=== PATIENT | male | born 1970 ===

== ENCOUNTER 2017-12-20 09:45 | Inpatient (IN) | payer SELFPAY ==
[2017-12-20 09:49] VITALS: BMI 27.1
--- NOTE | 2017-12-20 09:54 | ED PDOC ---
Arrival/HPI - General Chief Complaint: Cardiac Arrest Time Seen by Provider: 12/20/17 09:48 Historian: EMS EM Caveat: Acuity of Condition - History of Present Illness Narrative History of Present Illness (Text): 12/20/17 09:53 Patient is a 47 year old male who was brought into the emergency department by EMS for cardiac arrest. Per EMS patient has a medical history of hypertension, diabetes, and kidney failure(on dialysis). EMS states that patient was found in cardiac arrest and asystolic but not witnessed. Family stated he was down for 15 minutes, and they performed CPR until EMS arrived. EMS worked on him for 20 minutes. They administered 3 epinephrines and he subsequently went into V-tach. ST elevation was noted in the field. He was defibrillated and heart rate was in the 60's, and now in the 70's-80's. His glucose was found to be 260. He was administered Amiodarone 300mg and IV fluids 500mL x3. Patient was intubated and and EMS states his lungs were initially clear and are clear now. His last dialysis was 4 days ago. Time/Duration: Prior to Arrival Context: Home Past Medical History - Provider Review Nursing Documentation Reviewed: Yes Family/Social History - Physician Review Nursing Documentation Reviewed: Yes Family/Social History: Unknown Family HX Allergies/Home Meds Allergies/Adverse Reactions: Allergies No Known Allergies Allergy (Verified 12/20/17 09:57) Review of Systems - Review of Systems Systems not reviewed;Unavailable: Acuity of Condition Physical Exam - Physical Exam Physical Exam Limitations: Clinical Condition Vital Signs Reviewed: Yes Temperature: Afebrile Blood Pressure: Normal Pulse: Tachycardic Respiratory Rate: Mechanically Ventilated Appearance: Positive for: Ill-Appearing Pain Distress: None Mental Status: Positive for: Comatose - Systems Exam Head: Present: Atraumatic Pupils: Present: Other (pupils 1mm and bilaterally reactive.) Conjunctiva: Present: Normal Mouth: Present: Moist Mucous Membranes Nose (External): Present: Atraumatic Neck: No: MIDLINE TENDERNESS Respiratory/Chest: Present: Clear to Auscultation, Rhonchi (bilaterally), Other (ET tube in place, 7.5 tube with good airflow.). No: Respiratory Distress, Accessory Muscle Use Cardiovascular: Present: Regular Rate and Rhythm. No: Murmurs Abdomen: No: Tenderness, Distention, Peritoneal Signs Back: Present: Normal Inspection Upper Extremity: Present: Normal Inspection. No: Cyanosis, Edema Lower Extremity: Present: Normal Inspection. No: Edema Neurological: Present: CN II-XII Intact, Other (Not moving extremities, not responsive to painful stimuli) Skin: Present: Warm, Dry, Normal Color, Other (Lower extremity foot wounds). No: Rashes Psychiatric: Present: Lethargic Medical Decision Making ED Course and Treatment: 12/20/17 09:50 Impression: Patient brought in by EMS for cardiac arrest. Differential Diagnosis included but are not limited to: S/p cardiac arrest, Cardiac vs. Sepsis vs. fluid overload/respiratory distress. Plan: -- BG -- Head CT without contrast -- EKG -- Labs -- Cardiac enzymes -- Chest X-ray -- BLood and urineculture -- Urinalysis -- Reassess and disposition Prior Visits: Notes and results from previous visits were reviewed. Progress Notes: 12/20/17 09:[address] elevations in leads 2, 3, and aVF. Interpreted by me. 12/20/17 09:[address] Wilson, who stated not to call code heart at this time and he will come to see the patient immediately. Will make further recommendations. 12/20/17 9:57 Discussed case with surgical aide. who will come to place a central line. 12/20/17 10:13 CPR performed because patient lost his pulse. Given one round of epi and regained his pulse, normal rhythm and rate. Good femoral pulse on left as examined by me. Started on Levophed IV drip. 12/20/17 10:20 Dr. Wilson came to see patient. He recommended ASA DE and Heparin IV pending Will start patient on Heparin and Aspirin pending CT completion and read. 12/20/17 10:22 Discussed case with , who is aware of and accepted patient to his ICU service. 12/20/17 10:33 Code sepsis called. 12/20/17 10:37 Chest X-ray: FINDINGS: LUNGS: There is bilateral pulmonary edema. The endotracheal tube is at the level of the aquiles PLEURA: No significant pleural effusion identified, no pneumothorax apparent. CARDIOVASCULAR: Normal. OSSEOUS STRUCTURES: No significant abnormalities. VISUALIZED UPPER ABDOMEN: Normal. OTHER FINDINGS: None. IMPRESSION: There is bilateral pulmonary edema. The endotracheal tube is at the level of the aquiles. 12/20/17 10:44 Discussed case with , who is aware of and accepts patient under his service. 12/20/17 12:[address] results called to me by Dr. Jang. RN Sofiya aware and will not give Aspirin nor Heparin. Patient's orders for Aspirin and Heparin were cancelled by me via Pharmacy. 12/20/17 13:00 Procedure: Head CT without contrast Impression: Intraventricular hemorrhage with blood filling the 4th ventricle. 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 Dictator: Godfrey Potter 12/20/17 13:22 Dr. Escobedo, ICU Attending discussed case with Neurosurgery. - Critical Care Critical Care Minutes: 60 minutes - Lab Interpretations I have reviewed the lab results: Yes - RAD Interpretation Lead Burner Helper: Radiologist - EKG Interpretation Interpreted by ED Physician: Yes Type: 12 lead EKG - Scribe Statement The provider has reviewed the documentation as recorded by the Scribe Nino So Provider Scribe Attestation: All medical record entries made by the Scribe were at my direction and personally dictated by me. I have reviewed the chart and agree that the record accurately reflects my personal performance of the history, physical exam, medical decision making, and the department course for this patient. I have also personally directed, reviewed, and agree with the discharge instructions and disposition. Disposition/Present on Arrival - Present on Arrival Any Indicators Present on Arrival: No - Disposition Have Diagnosis and Disposition been Completed?: Yes Diagnosis: Intracranial bleed, STEMI (ST elevation myocardial infarction), Sepsis, Cardiac arrest Disposition: HOSPITALIZED Disposition Time: 10:30 Patient Plan: Admission Condition: CRITICAL
[2017-12-20 10:19] LABS: BASO # 0.07 K/mm3 (0.0-2.0); BASO % 0.5 % (0.0-3.0); EOS # 0.1 (0.0-0.7); EOS % 0.4 % (1.5-5.0); GRAN # 10.43 (1.4-6.5); GRAN % 72.7 % (50.0-68.0); HEMOGLOBIN 10.7 g/dL (14.0-18.0); LYMPH # 3.5 (1.2-3.4); LYMPH % 24.2 % (22.0-35.0); MEAN CORPUSCULAR HEMOGLOBIN 28.7 pg (25.0-35.0); MEAN CORPUSCULAR HGB CONC 30.8 g/dl (31.0-37.0); MEAN PLATELET VOLUME 10.1 fl (7.0-11.0); MONO # 0.3 (0.1-0.6); MONO % 2.2 % (1.0-6.0); RBC 3.73 10^6/uL (3.5-6.1); RED CELL DISTRIBUTION WIDTH 15.9 % (11.5-14.5); WHITE BLOOD COUNT 14.4 10^3/ul (4.5-11.0)
[2017-12-20 10:21] LABS: VENOUS BLOOD GAS BASE EXCESS -23.2 mmol/L (0.0-2.0); VENOUS BLOOD GAS PO2 90 mm/Hg (30-55)
[2017-12-20 10:23] LABS: VENOUS BLOOD PH 6.82 (7.32-7.43)
[2017-12-20] MEDS ORDERED: Piperacill/Tazo 4.5gm in NS 4.5 GM/100 ML BAG IVPB STA (10:24)
[2017-12-20] MEDS ORDERED: Vancomycin 1gm in NS 250ml 1 GM/250 ML BAG IVPB STA ×2 (10:25→10:36)
[2017-12-20] MEDS ORDERED: Sodium Chloride 0.9% 1,000 ML IV STA ×2 (10:26)
[2017-12-20] MEDS ORDERED: Sodium Chloride 0.9% 500 ML IV STA (10:26)
[2017-12-20] MEDS: NOREPINEPHRINE BIT/0.9 % NACL 4 MG/250 ML BAG IV PRN ×2 (10:33→13:00)
[2017-12-20 10:37] LABS: INR 1.49; PARTIAL THROMBOPLASTIN TIME 40.6 Seconds (25.1-36.5); PROTHROMBIN TIME 17.3 SECONDS (9.4-12.5)
--- NOTE | 2017-12-20 10:39 | RAD ---
Date of service: 12/20/2017 HISTORY: cardiac arrest intubate COMPARISON: No prior. FINDINGS: LUNGS: There is bilateral pulmonary edema. The endotracheal tube is at the level of the aquiles PLEURA: No significant pleural effusion identified, no pneumothorax apparent. CARDIOVASCULAR: Normal. OSSEOUS STRUCTURES: No significant abnormalities. VISUALIZED UPPER ABDOMEN: Normal. OTHER FINDINGS: None. IMPRESSION: There is bilateral pulmonary edema. The endotracheal tube is at the level of the aquiles
[2017-12-20 10:40] LABS: TROPONIN I 0.1 ng/mL
[2017-12-20 10:45] LABS: ARTERIAL BLOOD GAS HCO3 10.1 mmol/L (21-28); ARTERIAL BLOOD GAS HEMOGLOBIN 9.6 g/dL (11.7-17.4); ARTERIAL BLOOD GAS O2 CAPACITY 13.3 mL/dl (16-24); ARTERIAL BLOOD GAS O2 CONTENT 12.1 ML/dl (15-23); ARTERIAL BLOOD GAS O2 SAT 90.9 % (95-98); ARTERIAL BLOOD GAS PCO2 47 mm/Hg (35-45); ARTERIAL BLOOD GAS TCO2 11.5 mmol.L (22-28)
[2017-12-20 10:46] LABS: ARTERIAL BLOOD GAS PH 6.94 (7.35-7.45)
[2017-12-20 10:53] LABS: ALBUMIN 3.2 g/dL (3.0-4.8); CALCIUM 8.4 mg/dL (8.4-10.5)
--- NOTE | 2017-12-20 11:14 | CP.PCM.PN ---
Addendum entered and electronically signed by Michaela Shipman DO 12/20/17 11:35: 11:00 am: Head CT pending to be performed. Levophed requirements increased. ICU attending at bedside. ICU attending will place central line for increasing pressor requirements prior to head CT. Original Note: Subjective - Date & Time of Evaluation Date of Evaluation: 12/20/17 Time of Evaluation: 10:15 - Subjective Subjective: Patient s/p cardiac arrest, surgical team called to place central line for access. Patient hemodynamically stable at time of exam. Patient for head CT prior to administering ASA for cardiac arrest. Patient became bradycardiac and lost pulse during initial exam for line placement, ROSC achieved after 1 round of ACLS. Levophed started through peripheral IV in right arm per ER team. BP 124 systolic. ER team preferred head CT prior to central line placement. Will re- evaluate post head CT for central line placement. Objective - Vital Signs/Intake and Output Vital Signs (last 24 hours): Temp Pulse Resp BP Pulse Ox 98.4 F 85 30 H 91/3 L 93 L 12/20/17 09:47 12/20/17 11:03 12/20/17 11:03 12/20/17 11:03 12/20/17 11:03 - Medications Medications: Current Medications NOREPINEPHRINE BIT/0.9 % NACL (Levophed 4 Mg/ 250 Ml Ns Premixed) 4 mg in 250 mls @ 15 mls/hr IV .[id number] PRN; Protocol PRN Reason: TITRATE PER MD ORDER Last Admin: 12/20/17 10:33 Dose: 15 mls/hr Sodium Chloride (Sodium Chloride 0.9%) 1,000 mls @ 999 mls/hr IV .Q1H1M STA Stop: 12/20/17 11:26 Last Admin: 12/20/17 10:54 Dose: 999 mls/hr Sodium Chloride (Sodium Chloride 0.9%) 1,000 mls @ 999 mls/hr IV .Q1H1M STA Stop: 12/20/17 11:26 Vancomycin HCl (Vancomycin 1gm) 1 gm in 250 mls @ 167 mls/hr IVPB STAT STA; Protocol Stop: 12/20/17 11:54 - Labs Labs: 12/20/17 10:00 12/20/17 10:00 PT 17.3 SECONDS (9.4-12.5) H 12/20/17 10:00 INR 1.49 12/20/17 10:00 APTT 40.6 Seconds (25.1-36.5) H 12/20/17 10:00
[2017-12-20 11:35] LABS: BASO # 0.03 K/mm3 (0.0-2.0); BASO % 0.1 % (0.0-3.0); EOS # 0.1 (0.0-0.7); EOS % 0.3 % (1.5-5.0); GRAN # 20.21 (1.4-6.5); GRAN % 87.2 % (50.0-68.0); HEMOGLOBIN 10.2 g/dL (14.0-18.0); LYMPH # 2.1 (1.2-3.4); LYMPH % 9.1 % (22.0-35.0); MEAN CELL VOLUME 91.7 fl (80.0-105.0); MEAN CORPUSCULAR HEMOGLOBIN 28.3 pg (25.0-35.0); MEAN CORPUSCULAR HGB CONC 30.8 g/dl (31.0-37.0); MEAN PLATELET VOLUME 9.9 fl (7.0-11.0); MONO # 0.8 (0.1-0.6); MONO % 3.3 % (1.0-6.0); RBC 3.61 10^6/uL (3.5-6.1); RED CELL DISTRIBUTION WIDTH 15.9 % (11.5-14.5); WHITE BLOOD COUNT 23.2 10^3/ul (4.5-11.0)
[2017-12-20 11:36] LABS: VENOUS BLOOD GAS BASE EXCESS -19.9 mmol/L (0.0-2.0); VENOUS BLOOD GAS PO2 224 mm/Hg (30-55)
[2017-12-20 11:39] LABS: VENOUS BLOOD PH 7.05 (7.32-7.43)
[2017-12-20] MEDS ORDERED: Sodium Bicarbonate 8.4% 150 MEQ in Dextrose 5% In Water 1,000 ML IV SCH (11:45)
[2017-12-20] MEDS ORDERED: Vasopressin 20 UNITS in Dextrose 5% In Water 100 ML IV SCH (11:45)
[2017-12-20] MEDS ORDERED: Amiodarone 360 mg/D5W 200 ml 360 MG/200 ML BAG IV SCH (12:00)
--- NOTE | 2017-12-20 12:00 | CP.PCM.HP ---
<Jerica Lilly - Last Filed: 12/20/17 15:09> History of Present Illness - History of Present Illness History of Present Illness: PGY-1 Jerica Lilly D.O. H&P for Dr. Angulo's service: Dave Donaldson is a 47 yo male with a history of ESRD (HD MWF), CVA, T2DM, TN, and HTN who presented to the ED after being found unresponsive for an unknown amount of time in his room by his mother and brother. They began CPR for 15 minutes until EMS arrived. EMS continued ACLS for another 20 minutes and intubated the patient. Patient's family reports that patient lives at home with family. He is bedbound and requires assistance with all ADLs. 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 Patient has been at his mental and physical baseline up until this event. However, patient missed dialysis on Saturday due to vomiting prior to transport. Patient's POA is his son, Nic. Patient does not have advance directives or living will. He never discussed code status with his family. Patient's family requested a palliative consult. SENIOR ANALYST DEVELOPER Chanelle Guerrero, spoke with family, who decided to make the patient DNR. 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 Currie [place]: [place] Patient receives most of his care at [facility] [place] Present on Admission - Present on Admission Any Indicators Present on Admission: Yes History of DVT/PE: No History of Uncontrolled Diabetes: Yes Urinary Catheter: No Decubitus Ulcer Present: No History Surgical Site Infection Following: None Review of Systems - Review of Systems Systems not reviewed;Unavailable: Intubated Past Patient History - Infectious Disease Hx of Infectious Diseases: None - Tetanus Immunizations Tetanus Immunization: Unknown - Past Medical History & Family History Past Medical History?: Yes Past Family History: Reviewed and not pertinent - Past Social History Smoking Status: Never Smoked Chewing Tobacco Use: No Cigar Use: No Occupation: former nurse Alcohol: None Drugs: Denies Home Situation {Lives}: With Family - CARDIAC Hx Heart Attack: Yes Hx Hypertension: Yes - RENAL Hx Dialysis: Yes (MWF) Type of Dialysis Access: R chest udall Date of Last Dialysis Treatment: 12/16/17 - ENDOCRINE/METABOLIC Hx Diabetes Mellitus Type 1: Yes - PSYCHIATRIC Hx Substance Use: No - SURGICAL HISTORY Other/Comment: toe amputation - ANESTHESIA Hx Anesthesia: Yes Hx Anesthesia Reactions: No Hx Malignant Hyperthermia: No Meds Allergies/Adverse Reactions: Allergies Allergy/AdvReac Type Severity Reaction Status Date / Time No Known Allergies Allergy Verified 12/20/17 09:57 Physical Exam - Head Exam Head Exam: ATRAUMATIC, NORMAL INSPECTION - Eye Exam Eye Exam: PERRL - ENT Exam ENT Exam: Mucous Membranes Moist Additional comments: ET tube NGT - Neck Exam Neck exam: Positive for: Normal Inspection - Respiratory Exam Respiratory Exam: Clear to Auscultation Bilateral Additional comments: intubated on ventilator - Cardiovascular Exam Cardiovascular Exam: REGULAR RHYTHM, +S1, +S2 - Extremities Exam Additional comments: bandages on feet b/l (amputations) - Back Exam Back exam: NORMAL INSPECTION - Neurological Exam Additional comments: unresponsive - Skin Skin Exam: Dry, Intact, Normal Color, Warm Results - Vital Signs Recent Vital Signs: Last Vital Signs Temp 98.4 F 12/20/17 09:47 Pulse 83 12/20/17 11:46 Resp 30 H 12/20/17 11:46 BP 128/44 L 12/20/17 11:46 Pulse Ox 95 12/20/17 11:46 - Labs Result Diagrams: 12/20/17 11:25 12/20/17 11:25 Labs: Laboratory Results - last 24 hr 12/20/17 12/20/17 12/20/17 10:00 10:00 10:00 WBC 14.4 H RBC 3.73 Hgb 10.7 L Hct 34.7 L MCV 93.0 MCH 28.7 MCHC 30.8 L RDW 15.9 H Plt Count 315 MPV 10.1 Gran % 72.7 H Lymph % (Auto) 24.2 Guadalupe % (Auto) 2.2 Eos % (Auto) 0.4 L Baso % (Auto) 0.5 Gran # 10.43 H Lymph # (Auto) 3.5 H Guadalupe # (Auto) 0.3 Eos # (Auto) 0.1 Baso # (Auto) 0.07 PT 17.3 H INR 1.49 APTT 40.6 H pCO2 pO2 90 H HCO3 ABG pH ABG Total CO2 ABG O2 Saturation ABG O2 Content ABG Base Excess ABG Hemoglobin ABG Carboxyhemoglobin POC ABG HHb (Measured) ABG Methemoglobin ABG O2 Capacity VBG pH 6.82 L* VBG pCO2 73.0 H* VBG HCO3 11.9 L VBG Total CO2 14.1 L VBG O2 Sat (Calc) 86.0 H VBG Base Excess -23.2 L VBG Potassium 5.4 H Hgb O2 Saturation Sodium 144.0 Chloride 108.0 H Glucose 189 H Lactate 9.0 H* FiO2 21.0 Potassium Carbon Dioxide Anion Gap BUN Creatinine Est GFR ( Amer) Est GFR (Non-Af Amer) Random Glucose Calcium Magnesium Total Bilirubin AST ALT Alkaline Phosphatase Lactate Dehydrogenase Total Creatine Kinase Troponin I NT-Pro-B Natriuret Pep Total Protein Albumin Globulin Albumin/Globulin Ratio Venous Blood Potassium 5.4 H Blood Type Antibody Screen BBK History Checked 12/20/17 12/20/17 12/20/17 10:00 10:00 10:30 WBC RBC Hgb Hct MCV MCH MCHC RDW Plt Count MPV Gran % Lymph % (Auto) Guadalupe % (Auto) Eos % (Auto) Baso % (Auto) Gran # Lymph # (Auto) Guadalupe # (Auto) Eos # (Auto) Baso # (Auto) PT INR APTT pCO2 47 H pO2 86.0 HCO3 10.1 L ABG pH 6.94 L* ABG Total CO2 11.5 L ABG O2 Saturation 90.9 L ABG O2 Content 12.1 L ABG Base Excess -21.3 L ABG Hemoglobin 9.6 L ABG Carboxyhemoglobin 1.7 H POC ABG HHb (Measured) 8.9 H ABG Methemoglobin 0.5 ABG O2 Capacity 13.3 L VBG pH VBG pCO2 VBG HCO3 VBG Total CO2 VBG O2 Sat (Calc) VBG Base Excess VBG Potassium Hgb O2 Saturation 89.0 L Sodium 146 Chloride 110 H Glucose Lactate FiO2 100.0 Potassium 5.2 H Carbon Dioxide 11 L Anion Gap 30 H BUN 93 H Creatinine 11.6 H* Est GFR ( Amer) 6 Est GFR (Non-Af Amer) 5 Random Glucose 183 H Calcium 8.4 Magnesium 3.0 H Total Bilirubin 0.5 AST 62 H ALT 52 Alkaline Phosphatase 152 H Lactate Dehydrogenase 585 Total Creatine Kinase 82 Troponin I 0.10 NT-Pro-B Natriuret Pep 14831 H Total Protein 6.5 Albumin 3.2 Globulin 3.3 Albumin/Globulin Ratio 1.0 L Venous Blood Potassium Blood Type O POSITIVE Antibody Screen Negative BBK History Checked No verified bt 12/20/17 12/20/17 11:25 11:25 WBC 23.2 H D RBC 3.61 Hgb 10.2 L Hct 33.1 L MCV 91.7 MCH 28.3 MCHC 30.8 L RDW 15.9 H Plt Count 315 MPV 9.9 Gran % 87.2 H Lymph % (Auto) 9.1 L Guadalupe % (Auto) 3.3 Eos % (Auto) 0.3 L Baso % (Auto) 0.1 Gran # 20.21 H Lymph # (Auto) 2.1 Guadalupe # (Auto) 0.8 H Eos # (Auto) 0.1 Baso # (Auto) 0.03 PT INR APTT pCO2 pO2 224 H HCO3 ABG pH ABG Total CO2 ABG O2 Saturation ABG O2 Content ABG Base Excess ABG Hemoglobin ABG Carboxyhemoglobin POC ABG HHb (Measured) ABG Methemoglobin ABG O2 Capacity VBG pH 7.05 L* VBG pCO2 35.0 L VBG HCO3 9.7 L VBG Total CO2 10.8 L VBG O2 Sat (Calc) 98.3 H VBG Base Excess -19.9 L VBG Potassium 6.1 H Hgb O2 Saturation Sodium 142.0 Chloride 111.0 H Glucose 188 H Lactate 8.1 H* FiO2 21.0 Potassium Carbon Dioxide Anion Gap BUN Creatinine Est GFR ( Amer) Est GFR (Non-Af Amer) Random Glucose Calcium Magnesium Total Bilirubin AST ALT Alkaline Phosphatase Lactate Dehydrogenase Total Creatine Kinase Troponin I NT-Pro-B Natriuret Pep Total Protein Albumin Globulin Albumin/Globulin Ratio Venous Blood Potassium 6.1 H Blood Type Antibody Screen BBK History Checked - EKG Data EKG Interpreted by: ER Physician EKG shows normal: Sinus rhythm, ST-T waves Rate: Normal - EKG Data When Compared to Previous EKG: Significant Changes Interpretation: Acute Ischemia EKG comments: QTc 572 Assessment & Plan - Assessment and Plan (Free Text) Assessment: Patient is a 47 yo male with an extensive PMH including ESRD on HD, MIs, CVA, and T2DM who presented to the ED after being found unresponsive in asystole. He was down for >35 minutes before achieving ROSC. He is intubated and unresponsive to stimuli. CT head shows intracranial hemorrhage. Plan: Cardiac arrest- h/o [place] x2, CVA in 2005 - Intubated on ventilator - EKG: NSR (67), ST elevation, QTc 572 - CT chest/abd/pelvis: b/l alveolar infiltrates and pleural effusions - CXR: b/l pulm edema, ET tube in place - ABG on FiO2 100: pH 6.94, pO2 85, pCO2 47 - Trop 0.10 - BNP 34,700 - Echo pending - Amiodarone drip - Nicardipine drip - Sodum bicarb drip - ICU consulted (Gregg) - Cardiology consulted (Steve) Intraventricular hemorrhage - CT head: intraventricular hemorrhage with blood filling 4th ventricle, mod- severe hydrocephalus with enlargement of temporal horns - Keppra 500 mg IV BID - Soul-cortef 50 mg IV Q6H - Neurology consulted (Jung) Sepsis - Leukocytosis 14.4->23.2 - LA 9->8.1->6.3 - f/u Cx - ID consulted (Edy) ESRD- HD ([facility]), patient missed this past Wed HD - Continue dialysis schedule as tolerated - Nephrology consulted (Nella) HTN- currently requiring pressors - Levophed - Vasopressin T2DM- b/l foot amputations, b/l vision loss - BG 180s - Monitor glucose GI ppx: not indicated VTE ppx: contraindicated 2/2 brain bleed Code status: DNR- paliiative consulted Case discussed with Dr. Angulo. <Koby Angulo - Last Filed: 12/21/17 15:05> Results - Vital Signs Recent Vital Signs: Last Vital Signs Temp 97.0 F L 12/20/17 16:15 Pulse 104 H 12/20/17 18:46 Resp 24 12/20/17 18:46 BP 149/74 12/20/17 16:15 Pulse Ox 98 12/20/17 16:15 - Labs Result Diagrams: 12/20/17 11:25 12/20/17 11:25 Labs: Laboratory Results - last 24 hr 10/05/18 10/05/18 11:25 14:50 pO2 133 H VBG pH 7.10 L* VBG pCO2 33.0 L VBG HCO3 10.2 L VBG Total CO2 11.2 L VBG O2 Sat (Calc) 97.8 H VBG Base Excess -18.4 L VBG Potassium 6.2 H* Sodium 140.0 Chloride 106.0 Glucose 319 H Lactate 6.3 H* FiO2 21.0 Procalcitonin 0.25 Venous Blood Potassium 6.2 H* Attending/Attestation - Attestation I have personally seen and examined this patient.: Yes I have fully participated in the care of the patient.: Yes I have reviewed all pertinent clinical information: Yes Notes (Text): 12/21/17 14:59 attending note; Patient seen and examined with resident in the ER. Patient's family by the bedside. Patient's son and sister by the bedside. palliative care consult by the bedside. Therapeutic Strategy Lead in the bed side. Patient is a 47 year old male with a history of ESRD (HD MWF), CVA, T2DM, TN, and HTN, toe amputations on both feet is admitted after being found unresponsive for an unknown amount of time in his room by his mother and brother.They began CPR for 15 minutes until EMS arrived. EMS continued ACLS for another 20 minutes and intubated the patient. Patient's family reports that patient lives at home with family. He is bedbound and requires assistance with all ADLs. Patient is blind and has amputations in both feet. Currently patient is on t vent. Nonresponsive. central line placed by attending. Started on pressors. CT head ordered. CT abdomen and pelvis ordered. End-stage renal disease on dialysis; nephrology evaluation requested. We will stabilize the patient before hemodialysis. EKG showed ST elevations. Reviewed by planting machine crewman. Patient is not a candidate for cardiac cath at this point. We will stabilize the patient. Patient will be transferred to ICU. family explained in detail about poor prognosis.
--- NOTE | 2017-12-20 12:08 | RAD ---
Date of service: 12/20/2017 HISTORY: post tlc insertion COMPARISON: Earlier study same day FINDINGS: LUNGS: There is pulmonary edema showing slight improvement. Endotracheal tube in satisfactory position. Left subclavian central line in the SVC with no pneumothorax PLEURA: No significant pleural effusion identified, no pneumothorax apparent. CARDIOVASCULAR: Normal. OSSEOUS STRUCTURES: No significant abnormalities. VISUALIZED UPPER ABDOMEN: Normal. OTHER FINDINGS: None. IMPRESSION: There is pulmonary edema showing slight improvement. Endotracheal tube in satisfactory position. Left subclavian central line in the SVC with no pneumothorax
[2017-12-20 12:09] LABS: ALBUMIN 3.1 g/dL (3.0-4.8); CALCIUM 8.1 mg/dL (8.4-10.5)
[2017-12-20] MEDS ORDERED: levETIRAcetam 500mg IVPB 500 MG/100 ML BAG IV SCH (12:15)
[2017-12-20] MEDS ORDERED: Heparin25000 units/250ml 1/2NS 25,000 UNITS/250 ML BAG IV SCH (12:45)
--- NOTE | 2017-12-20 12:46 | CT ---
Date of service: 12/20/2017 PROCEDURE: CT HEAD WITHOUT CONTRAST. HISTORY: cardiac arrest COMPARISON: None available. TECHNIQUE: Axial computed tomography images were obtained through the head/brain without intravenous contrast. Radiation dose: Total exam DLP = 2307 mGy-cm. This CT exam was performed using one or more of the following dose reduction techniques: Automated exposure control, adjustment of the mA and/or kV according to patient size, and/or use of iterative reconstruction technique. FINDINGS: HEMORRHAGE: There is a large amount of blood filling the 4th ventricle. There is also small amount of blood in the 3rd ventricle and a focal area of hemorrhage in the medial aspect of the right thalamus. BRAIN: Chronic microvascular changes are seen in the periventricular white matter. VENTRICLES: There is hydrocephalus with enlargement of the temporal horns CALVARIUM: Unremarkable. PARANASAL SINUSES: Unremarkable as visualized. No significant inflammatory changes. MASTOID AIR CELLS: Unremarkable as visualized. No inflammatory changes. OTHER FINDINGS: Findings were discussed with Dr. Moss at 12:35 p.m. IMPRESSION: Intraventricular hemorrhage with blood filling the 4th ventricle. 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
--- NOTE | 2017-12-20 12:51 | CT ---
Date of service: 12/20/2017 PROCEDURE: CT Chest, Abdomen and Pelvis with intravenous contrast HISTORY: non shockable cardiac arrest, septic shock COMPARISON: None available. TECHNIQUE: IV dose administered: 146 cc of Omni 350 Radiation dose: Total exam DLP = 935 mGy-cm. This CT exam was performed using one or more of the following dose reduction techniques: Automated exposure control, adjustment of the mA and/or kV according to patient size, and/or use of iterative reconstruction technique. FINDINGS: CT CHEST WITH CONTRAST: LUNGS: Bilateral alveolar infiltrates and moderate size pleural effusions MEDIASTINUM: Unremarkable. Normal caliber aorta and pulmonary arterial trunk. No aortic dissection. Normal size heart. LYMPH NODES: Unremarkable. PLEURA: Moderate size pleural effusion BONES: Unremarkable. OTHER FINDINGS: Nasogastric tube in satisfactory position CT ABDOMEN AND PELVIS: LIVER: Unremarkable. No gross lesion or ductal dilatation. GALLBLADDER AND BILE DUCTS: Unremarkable. PANCREAS: Unremarkable. No gross lesion or ductal dilatation. SPLEEN: Unremarkable. ADRENALS: Unremarkable. No mass. KIDNEYS AND URETERS: Unremarkable. No hydronephrosis. No solid mass. VASCULATURE: Unremarkable. No aortic aneurysm. BOWEL: Unremarkable. No obstruction. No gross mural thickening. APPENDIX: Normal appendix. PERITONEUM: Unremarkable. No free fluid. No free air. LYMPH NODES: Unremarkable. No enlarged lymph nodes. BLADDER: Unremarkable. REPRODUCTIVE: Unremarkable. BONES: No acute fracture. OTHER FINDINGS: None. IMPRESSION: Bilateral alveolar infiltrates and pleural effusions. No intra-abdominal findings
--- NOTE | 2017-12-20 13:44 | CP.PCM.CON ---
History of Present Illness - History of Present Illness History of Present Illness: Palliative consult requested by Dr Carrol Angulo Reason: Goals of care 47 year old male with history ESRD on HD, DM, HTN who was found unresponsive by family who started CPR for 15 minutes> EMS> > ACLS X 20 minutes> ROSC. 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 CT of chest/ab /pelvis: Bilateral infiltrates and pleural effusions PMHx: HTN,DM, PVD, ESRD on HD,CVA left sided weakness, AR X2,bed bound, blind. PSH: R upper chest [place], bilateral toe amputations Social History: Non smoker, no alcohol or drug use. Former nurse,lives with family. Family History: Non contributory Advance Care Planning: The patient did not have an Advanced Directive> POA is his son Nic Review of Systems: Unable to obtain, intubated/unresponsive Past Patient History - Infectious Disease Hx of Infectious Diseases: None - Past Social History Smoking Status: Never Smoked - CARDIAC Hx Heart Attack: Yes Hx Hypertension: Yes - RENAL Hx Dialysis: Yes (MWF) Type of Dialysis Access: R chest udall Date of Last Dialysis Treatment: 12/16/17 - ENDOCRINE/METABOLIC Hx Diabetes Mellitus Type 1: Yes - PSYCHIATRIC Hx Substance Use: No - SURGICAL HISTORY Other/Comment: toe amputation - ANESTHESIA Hx Anesthesia: Yes Hx Anesthesia Reactions: No Hx Malignant Hyperthermia: No Meds Allergies/Adverse Reactions: Allergies Allergy/AdvReac Type Severity Reaction Status Date / Time No Known Allergies Allergy Verified 12/20/17 09:57 - Medications Medications: Current Medications NOREPINEPHRINE BIT/0.9 % NACL (Levophed 4 Mg/ 250 Ml Ns Premixed) 4 mg in 250 mls @ 15 mls/hr IV .[id number] PRN; Protocol PRN Reason: TITRATE PER MD ORDER Last Admin: 12/20/17 13:00 Dose: 9.86 mcg/min, 37 mls/hr Sodium Bicarbonate 150 meq/ (Dextrose) 1,150 mls @ 200 mls/hr IV .[id number] [facility] Last Admin: 12/20/17 12:57 Dose: 200 mls/hr Physical Exam - Constitutional Appears: Chronically Ill - Head Exam Head Exam: NORMOCEPHALIC - ENT Exam ENT Exam: Mucous Membranes Moist - Neck Exam Neck exam: Positive for: Normal Inspection - Respiratory Exam Respiratory Exam: Decreased Breath Sounds, Rhonchi - Cardiovascular Exam Cardiovascular Exam: +S1, +S2 - GI/Abdominal Exam GI & Abdominal Exam: Normal Bowel Sounds, Soft - Extremities Exam Additional comments: dressing right foot, PVD lower extremities - Neurological Exam Neurological exam: Altered - Skin Skin Exam: Dry, Warm - Additional Findings Additional findings: Palliative performance scale rating Results - Vital Signs Recent Vital Signs: Last Vital Signs Temp 98.2 F 12/20/17 13:03 Pulse 81 12/20/17 13:03 Resp 17 12/20/17 13:03 BP 166/69 H 12/20/17 13:03 Pulse Ox 98 12/20/17 13:03 - Labs Result Diagrams: 12/20/17 11:25 12/20/17 11:25 Labs: Laboratory Results - last 24 hr 12/20/17 12/20/17 12/20/17 10:00 10:00 10:00 WBC 14.4 H RBC 3.73 Hgb 10.7 L Hct 34.7 L MCV 93.0 MCH 28.7 MCHC 30.8 L RDW 15.9 H Plt Count 315 MPV 10.1 Gran % 72.7 H Lymph % (Auto) 24.2 [place] % (Auto) 2.2 Eos % (Auto) 0.4 L Baso % (Auto) 0.5 Gran # 10.43 H Lymph # (Auto) 3.5 H [place] # (Auto) 0.3 Eos # (Auto) 0.1 Baso # (Auto) 0.07 PT 17.3 H INR 1.49 APTT 40.6 H pCO2 pO2 90 H HCO3 ABG pH ABG Total CO2 ABG O2 Saturation ABG O2 Content ABG Base Excess ABG Hemoglobin ABG Carboxyhemoglobin POC ABG HHb (Measured) ABG Methemoglobin ABG O2 Capacity VBG pH 6.82 L* VBG pCO2 73.0 H* VBG HCO3 11.9 L VBG Total CO2 14.1 L VBG O2 Sat (Calc) 86.0 H VBG Base Excess -23.2 L VBG Potassium 5.4 H Hgb O2 Saturation Sodium 144.0 Chloride 108.0 H Glucose 189 H Lactate 9.0 H* FiO2 21.0 Potassium Carbon Dioxide Anion Gap BUN Creatinine Est GFR ( Amer) Est GFR (Non-Af Amer) Random Glucose Calcium Magnesium Total Bilirubin AST ALT Alkaline Phosphatase Lactate Dehydrogenase Total Creatine Kinase Troponin I NT-Pro-B Natriuret Pep Total Protein Albumin Globulin Albumin/Globulin Ratio Venous Blood Potassium 5.4 H Blood Type Antibody Screen BBK History Checked 12/20/17 12/20/17 12/20/17 10:00 10:00 10:30 WBC RBC Hgb Hct MCV MCH MCHC RDW Plt Count MPV Gran % Lymph % (Auto) [place] % (Auto) Eos % (Auto) Baso % (Auto) Gran # Lymph # (Auto) [place] # (Auto) Eos # (Auto) Baso # (Auto) PT INR APTT pCO2 47 H pO2 86.0 HCO3 10.1 L ABG pH 6.94 L* ABG Total CO2 11.5 L ABG O2 Saturation 90.9 L ABG O2 Content 12.1 L ABG Base Excess -21.3 L ABG Hemoglobin 9.6 L ABG Carboxyhemoglobin 1.7 H POC ABG HHb (Measured) 8.9 H ABG Methemoglobin 0.5 ABG O2 Capacity 13.3 L VBG pH VBG pCO2 VBG HCO3 VBG Total CO2 VBG O2 Sat (Calc) VBG Base Excess VBG Potassium Hgb O2 Saturation 89.0 L Sodium 146 Chloride 110 H Glucose Lactate FiO2 100.0 Potassium 5.2 H Carbon Dioxide 11 L Anion Gap 30 H BUN 93 H Creatinine 11.6 H* Est GFR ( Amer) 6 Est GFR (Non-Af Amer) 5 Random Glucose 183 H Calcium 8.4 Magnesium 3.0 H Total Bilirubin 0.5 AST 62 H ALT 52 Alkaline Phosphatase 152 H Lactate Dehydrogenase 585 Total Creatine Kinase 82 Troponin I 0.10 NT-Pro-B Natriuret Pep 71894 H Total Protein 6.5 Albumin 3.2 Globulin 3.3 Albumin/Globulin Ratio 1.0 L Venous Blood Potassium Blood Type O POSITIVE Antibody Screen Negative BBK History Checked No verified bt 12/20/17 12/20/17 12/20/17 11:25 11:25 11:25 WBC 23.2 H D RBC 3.61 Hgb 10.2 L Hct 33.1 L MCV 91.7 MCH 28.3 MCHC 30.8 L RDW 15.9 H Plt Count 315 MPV 9.9 Gran % 87.2 H Lymph % (Auto) 9.1 L [place] % (Auto) 3.3 Eos % (Auto) 0.3 L Baso % (Auto) 0.1 Gran # 20.21 H Lymph # (Auto) 2.1 [place] # (Auto) 0.8 H Eos # (Auto) 0.1 Baso # (Auto) 0.03 PT INR APTT pCO2 pO2 224 H HCO3 ABG pH ABG Total CO2 ABG O2 Saturation ABG O2 Content ABG Base Excess ABG Hemoglobin ABG Carboxyhemoglobin POC ABG HHb (Measured) ABG Methemoglobin ABG O2 Capacity VBG pH 7.05 L* VBG pCO2 35.0 L VBG HCO3 9.7 L VBG Total CO2 10.8 L VBG O2 Sat (Calc) 98.3 H VBG Base Excess -19.9 L VBG Potassium 6.1 H Hgb O2 Saturation Sodium 142.0 146 Chloride 111.0 H 112 H Glucose 188 H Lactate 8.1 H* FiO2 21.0 Potassium 6.2 H* Carbon Dioxide 9 L Anion Gap 31 H BUN 93 H Creatinine 11.5 H* Est GFR ( Amer) 6 Est GFR (Non-Af Amer) 5 Random Glucose 180 H Calcium 8.1 L Magnesium Total Bilirubin 0.5 AST 82 H D ALT 60 H Alkaline Phosphatase 155 H Lactate Dehydrogenase Total Creatine Kinase Troponin I NT-Pro-B Natriuret Pep Total Protein 6.2 Albumin 3.1 Globulin 3.1 Albumin/Globulin Ratio 1.0 L Venous Blood Potassium 6.1 H Blood Type Antibody Screen BBK History Checked Assessment & Plan - Assessment and Plan (Free Text) Assessment: 47 year old male with history of HTN, DM, PVD, ESRD on Hd who was admitted s/p cardiac arrest>ACLS>. Intubated /vasopressors. 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 Family at bedside, patients sister who is an RN at [employer], another sister and patients son. Family aware of patients multiple comorbidities. State he has been in ICU at [facility] in the past and they did not expect him to pull through at that time. Family understands that patient is gravely ill and wish to make him a DNR. Family expressed that they will wait to see what next 24 hours bring but are in agreement that if his quality of life is severely impacted that they will consider terminal extubation and comfort care. Family states that he has been suffering for a long time. 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 Tie spent with family in goals of care and advance care planning, 30 minutes Addendum: I met with family later in the day, they made decision to terminally extubate Plan: Advance care planning: DNR Sepsis: Neuro: Intraventricular hemorrhage. Neuro consulted Pulmonary
[2017-12-20] MEDS ORDERED: Nicardipine 20 MG/200 ML 20 MG/200 ML BAG IV PRN (14:15)
--- NOTE | 2017-12-20 14:22 | CP.PCM.CON ---
History of Present Illness - History of Present Illness History of Present Illness: Jay Jay Elam DO, PGY-1 ICU Consult Note for Dr. Escobedo Patient is a 47 year old male with PMH of ESRD HD dependent, HTN, and DM2 who was found unresponsive at home by family. Per EMS, family performed CPR for 15 minutes. EMS arrived and continued CPR. He received 3 doses of epinephrine, 300 mg of amiodarone and subsequently went into V-tach. ST elevation was noted at the time. He was then defibrillated, and ROSC was achieved approximately 20 minutes after EMS arrival. En route, he received 3 500 mL IVF boluses. He was subsequently admitted to ICU for additional management. After discussion with the family following this event, patient is now DNR. PMH: ESRD on HD, HTN, DM2, AR x 2, CVA with L-sided deficit PSH: b/l foot amputations Soc Hx: family denies he ever smoked, drank, or used drugs, worked as an RN Fam Hx: non-contributory All: NKDA Review of Systems - Review of Systems Systems not reviewed;Unavailable: Acuity of Condition Past Patient History - Infectious Disease Hx of Infectious Diseases: None - Tetanus Immunizations Tetanus Immunization: Unknown - Past Medical History & Family History Past Medical History?: Yes Past Family History: Reviewed and not pertinent - Past Social History Smoking Status: Never Smoked - CARDIAC Hx Heart Attack: Yes Hx Hypertension: Yes - RENAL Hx Dialysis: Yes (MWF) Type of Dialysis Access: R chest udall Date of Last Dialysis Treatment: 12/16/17 - ENDOCRINE/METABOLIC Hx Diabetes Mellitus Type 1: Yes - PSYCHIATRIC Hx Substance Use: No - SURGICAL HISTORY Other/Comment: toe amputation - ANESTHESIA Hx Anesthesia: Yes Hx Anesthesia Reactions: No Hx Malignant Hyperthermia: No Meds Allergies/Adverse Reactions: Allergies Allergy/AdvReac Type Severity Reaction Status Date / Time No Known Allergies Allergy Verified 12/20/17 09:57 - Medications Medications: Current Medications Hydrocortisone Sodium Succinate (Solu-Cortef) 50 mg IVP Q6H [facility] NOREPINEPHRINE BIT/0.9 % NACL (Levophed 4 Mg/ 250 Ml Ns Premixed) 4 mg in 250 mls @ 15 mls/hr IV .[id number] PRN; Protocol PRN Reason: TITRATE PER MD ORDER Last Admin: 12/20/17 13:00 Dose: 9.86 mcg/min, 37 mls/hr Sodium Bicarbonate 150 meq/ (Dextrose) 1,150 mls @ 200 mls/hr IV .Q5H45M [facility] Last Admin: 12/20/17 12:57 Dose: 200 mls/hr Vasopressin 20 units/ Dextrose 101 mls @ 9.09 mls/hr IV .Q11H7M [facility]; Protocol Amiodarone HCl/Dextrose (Nexterone 360 Mg In D5w 200 Ml (Premix)) 360 mg in 200 mls @ 33.333 mls/hr IV .Q6H [facility]; Protocol Levetiracetam (Keppra 500mg Ivpb) 500 mg in 100 mls @ 400 mls/hr IV Q12 [facility] Nicardipine HCl (Cardene Iv Premix) 20 mg in 200 mls @ 50 mls/hr IV .Q4H PRN; Protocol PRN Reason: TITRATE PER MD ORDER Desmopressin Acetate 21 mcg/ (Sodium Chloride) 55.25 mls @ 100 mls/hr IV ONCE ONE Stop: 12/20/17 14:45 Physical Exam - Constitutional Appears: Other (intubated, sedated) - Head Exam Head Exam: ATRAUMATIC, NORMAL INSPECTION - ENT Exam ENT Exam: Mucous Membranes Moist - Respiratory Exam Respiratory Exam: Clear to Auscultation Bilateral. absent: Accessory Muscle Us e, Rales, Rhonchi, Wheezes - Cardiovascular Exam Cardiovascular Exam: REGULAR RHYTHM, RRR, +S1, +S2. absent: Diastolic murmur, Gallop, Rubs, Systolic Murmur - GI/Abdominal Exam GI & Abdominal Exam: absent: Distended, Organomegaly - Exam Exam: Circumcision, NORMAL INSPECTION (vitale in place) - Extremities Exam Extremities exam: Positive for: normal inspection. Negative for: pedal edema - Neurological Exam Additional comments: Doll's eyes, gag, pupillary, and corneal reflexes absent - Skin Skin Exam: Dry, Intact, Warm Results - Vital Signs Recent Vital Signs: Last Vital Signs Temp 98.2 F 12/20/17 13:03 Pulse 81 12/20/17 13:03 Resp 17 12/20/17 13:03 BP 166/69 H 12/20/17 13:03 Pulse Ox 98 12/20/17 13:03 - Labs Result Diagrams: 12/20/17 11:25 12/20/17 11:25 Labs: Laboratory Results - last 24 hr 12/20/17 12/20/17 12/20/17 10:00 10:00 10:00 WBC 14.4 H RBC 3.73 Hgb 10.7 L Hct 34.7 L MCV 93.0 MCH 28.7 MCHC 30.8 L RDW 15.9 H Plt Count 315 MPV 10.1 Gran % 72.7 H Lymph % (Auto) 24.2 [place] % (Auto) 2.2 Eos % (Auto) 0.4 L Baso % (Auto) 0.5 Gran # 10.43 H Lymph # (Auto) 3.5 H [place] # (Auto) 0.3 Eos # (Auto) 0.1 Baso # (Auto) 0.07 PT 17.3 H INR 1.49 APTT 40.6 H pCO2 pO2 90 H HCO3 ABG pH ABG Total CO2 ABG O2 Saturation ABG O2 Content ABG Base Excess ABG Hemoglobin ABG Carboxyhemoglobin POC ABG HHb (Measured) ABG Methemoglobin ABG O2 Capacity VBG pH 6.82 L* VBG pCO2 73.0 H* VBG HCO3 11.9 L VBG Total CO2 14.1 L VBG O2 Sat (Calc) 86.0 H VBG Base Excess -23.2 L VBG Potassium 5.4 H Hgb O2 Saturation Sodium 144.0 Chloride 108.0 H Glucose 189 H Lactate 9.0 H* FiO2 21.0 Potassium Carbon Dioxide Anion Gap BUN Creatinine Est GFR ( Amer) Est GFR (Non-Af Amer) Random Glucose Calcium Magnesium Total Bilirubin AST ALT Alkaline Phosphatase Lactate Dehydrogenase Total Creatine Kinase Troponin I NT-Pro-B Natriuret Pep Total Protein Albumin Globulin Albumin/Globulin Ratio Venous Blood Potassium 5.4 H Blood Type Antibody Screen BBK History Checked 12/20/17 12/20/17 12/20/17 10:00 10:00 10:30 WBC RBC Hgb Hct MCV MCH MCHC RDW Plt Count MPV Gran % Lymph % (Auto) [place] % (Auto) Eos % (Auto) Baso % (Auto) Gran # Lymph # (Auto) [place] # (Auto) Eos # (Auto) Baso # (Auto) PT INR APTT pCO2 47 H pO2 86.0 HCO3 10.1 L ABG pH 6.94 L* ABG Total CO2 11.5 L ABG O2 Saturation 90.9 L ABG O2 Content 12.1 L ABG Base Excess -21.3 L ABG Hemoglobin 9.6 L ABG Carboxyhemoglobin 1.7 H POC ABG HHb (Measured) 8.9 H ABG Methemoglobin 0.5 ABG O2 Capacity 13.3 L VBG pH VBG pCO2 VBG HCO3 VBG Total CO2 VBG O2 Sat (Calc) VBG Base Excess VBG Potassium Hgb O2 Saturation 89.0 L Sodium 146 Chloride 110 H Glucose Lactate FiO2 100.0 Potassium 5.2 H Carbon Dioxide 11 L Anion Gap 30 H BUN 93 H Creatinine 11.6 H* Est GFR ( Amer) 6 Est GFR (Non-Af Amer) 5 Random Glucose 183 H Calcium 8.4 Magnesium 3.0 H Total Bilirubin 0.5 AST 62 H ALT 52 Alkaline Phosphatase 152 H Lactate Dehydrogenase 585 Total Creatine Kinase 82 Troponin I 0.10 NT-Pro-B Natriuret Pep 99080 H Total Protein 6.5 Albumin 3.2 Globulin 3.3 Albumin/Globulin Ratio 1.0 L Venous Blood Potassium Blood Type O POSITIVE Antibody Screen Negative BBK History Checked No verified bt 12/20/17 12/20/17 12/20/17 11:25 11:25 11:25 WBC 23.2 H D RBC 3.61 Hgb 10.2 L Hct 33.1 L MCV 91.7 MCH 28.3 MCHC 30.8 L RDW 15.9 H Plt Count 315 MPV 9.9 Gran % 87.2 H Lymph % (Auto) 9.1 L [place] % (Auto) 3.3 Eos % (Auto) 0.3 L Baso % (Auto) 0.1 Gran # 20.21 H Lymph # (Auto) 2.1 [place] # (Auto) 0.8 H Eos # (Auto) 0.1 Baso # (Auto) 0.03 PT INR APTT pCO2 pO2 224 H HCO3 ABG pH ABG Total CO2 ABG O2 Saturation ABG O2 Content ABG Base Excess ABG Hemoglobin ABG Carboxyhemoglobin POC ABG HHb (Measured) ABG Methemoglobin ABG O2 Capacity VBG pH 7.05 L* VBG pCO2 35.0 L VBG HCO3 9.7 L VBG Total CO2 10.8 L VBG O2 Sat (Calc) 98.3 H VBG Base Excess -19.9 L VBG Potassium 6.1 H Hgb O2 Saturation Sodium 142.0 146 Chloride 111.0 H 112 H Glucose 188 H Lactate 8.1 H* FiO2 21.0 Potassium 6.2 H* Carbon Dioxide 9 L Anion Gap 31 H BUN 93 H Creatinine 11.5 H* Est GFR ( Amer) 6 Est GFR (Non-Af Amer) 5 Random Glucose 180 H Calcium 8.1 L Magnesium Total Bilirubin 0.5 AST 82 H D ALT 60 H Alkaline Phosphatase 155 H Lactate Dehydrogenase Total Creatine Kinase Troponin I NT-Pro-B Natriuret Pep Total Protein 6.2 Albumin 3.1 Globulin 3.1 Albumin/Globulin Ratio 1.0 L Venous Blood Potassium 6.1 H Blood Type Antibody Screen BBK History Checked Assessment & Plan - Assessment and Plan (Free Text) Assessment: 47 yo M with PMH of ESRD on HD, HTN, and DM2 presented via EMS in cardiac arrest. Plan: Neuro: -Currently intubated and sedated -Doll's eyes, gag, pupillary, and corneal reflexes absent -Currently on cooling protocol -Head CT found hemorrhage in 4th ventricle/cerebellar region -Given that 30 minutes passed before ROSC, patient likely has severe anoxic brain injury -Family has been informed of poor prognosis and made decision to make patient DNR -F/u neurology recs Cardio: -Cardiac arrest likely 2/2 to VTach and STEMI -Currently RRR, normotensive -Maintain MAP > 65 -Continue to monitor for s/sx HD compromise -CXR in ED with significant b/l pulmonary edema -Echo pending Pulm: -B/l rales auscultated on exam c/w significant pulmonary edema -Vent settings: RR 30, TV 400, FiO2 100%, PEEP 5 -Protective lung strategy -Aspiration pxns -Daily ABG, CXR -Keep head of bed elevated to 30 degrees -Maintain SpO2 > 95% GI: -NPO -Protonix for prophylaxis /Nephro: -BUN/Cr stable -Vitale in place -Monitor UOP -Replete electrolytes as needed -Maintain euvolemia ID: -Afebrile -Leukocytosis may be reactionary -Empiric vanc/zosyn given in ED -F/u blood urine cx, procal -F/u ID recs Heme/Onc: -H/H stable at 10.2/32.1 -Continue to monitor H/H -Continue to monitor for s/sx of HD compromise GI/DVT PPX: Protonix and heparin drip DNR Monitor in MICU Case and plan reviewed and discussed with my attending Dr. Gregg Elam, DO IM Resident PGY-1
--- NOTE | 2017-12-20 14:38 | CARD ---
APPROVED REPORT Date of service: 12/20/2017 EKG Measurement Heart [id number] <Conclusion> Normal sinus rhythm Nonspecific intraventricular conduction delay ST elevation, consider inferior injury or acute infarct ACUTE NH Consider right ventricular involvement in acute inferior infarct Abnormal ECG
[2017-12-20 15:01] LABS: VENOUS BLOOD GAS BASE EXCESS -18.4 mmol/L (0.0-2.0); VENOUS BLOOD GAS PO2 133 mm/Hg (30-55)
--- NOTE | 2017-12-20 15:01 | PCM.SEPTIC ---
Addendum entered and electronically signed by Jerica Lilly DO 12/20/17 15:10: No dorasalis pedis pulses 2/2 b/l foot amputations Original Note: Sepsis Progress Note - Reassessment Type Date of Evaluation: 12/20/17 Time of Evaluation: 14:30 Reassessment Type: Non-invasive reassessment - Non Invasive Reassessment Were the most recent vital sign reviewed: Yes Vital Sign (Latest): Temp Pulse Resp BP Pulse Ox 98.2 F 81 17 166/69 H 98 12/20/17 13:03 12/20/17 13:03 12/20/17 13:03 12/20/17 13:03 12/20/17 13:03 Cardiovascular: Yes: Regular Rate, Rhythm Respiratory: Yes: Normal Breath Sounds, Other (intubated on ventilator). No: Respiratory Distress Capillary Refill: Normal (Less than 2 sec) Pulses: Normal Radial, Normal Dorsalis Pedis, Normal Posterior Tibialis Skin: Warm, Dry
--- NOTE | 2017-12-20 15:28 | CP.PCM.CON ---
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 At time of my exam, patient is intubated. HPI obtained from prior records. As per mother/brother, patient was found unresponsive at home for an unknown amount of time. They began CPR for 15 minutes, then EMS came to the scene, patient was intubated, and ROSC was obtained after 20 additional minutes of CPR. As per family, patient lives at home, bedbound, is blind, requires assistance with ADLs, has bilateral foot amputations. In ED, CT head showed large intraventricular hemorrhage. Neurology consulted for further management. 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 Kush Carrasco: [place] [facility] [place] [place] status: DNR Review of Systems - Review of Systems Systems not reviewed;Unavailable: Altered Mental Status, Intubated Past Patient History - Infectious Disease Hx of Infectious Diseases: None - Tetanus Immunizations Tetanus Immunization: Unknown - Past Medical History & Family History Past Medical History?: Yes Past Family History: Reviewed and not pertinent - Past Social History Smoking Status: Never Smoked Chewing Tobacco Use: No Cigar Use: No Occupation: former nurse Alcohol: None Drugs: Denies Home Situation {Lives}: With Family - CARDIAC Hx Heart Attack: Yes Hx Hypertension: Yes - RENAL Hx Dialysis: Yes (MWF) Type of Dialysis Access: R chest udall Date of Last Dialysis Treatment: 12/16/17 - ENDOCRINE/METABOLIC Hx Diabetes Mellitus Type 1: Yes - PSYCHIATRIC Hx Substance Use: No - SURGICAL HISTORY Other/Comment: toe amputation - ANESTHESIA Hx Anesthesia: Yes Hx Anesthesia Reactions: No Hx Malignant Hyperthermia: No Meds Allergies/Adverse Reactions: Allergies Allergy/AdvReac Type Severity Reaction Status Date / Time No Known Allergies Allergy Verified 12/20/17 09:57 - Medications Medications: Current Medications Hydrocortisone Sodium Succinate (Solu-Cortef) 50 mg IVP Q6H NAHOMY Last Admin: 12/20/17 14:53 Dose: 50 mg NOREPINEPHRINE BIT/0.9 % NACL (Levophed 4 Mg/ 250 Ml Ns Premixed) 4 mg in 250 mls @ 15 mls/hr IV .[id number] PRN; Protocol PRN Reason: TITRATE PER MD ORDER Last Admin: 12/20/17 13:00 Dose: 9.86 mcg/min, 37 mls/hr Sodium Bicarbonate 150 meq/ (Dextrose) 1,150 mls @ 200 mls/hr IV .Q5H45M NAHOMY Last Admin: 12/20/17 12:57 Dose: 200 mls/hr Vasopressin 20 units/ Dextrose 101 mls @ 9.09 mls/hr IV .Q11H7M NAHOMY; Protocol Amiodarone HCl/Dextrose (Nexterone 360 Mg In D5w 200 Ml (Premix)) 360 mg in 200 mls @ 33.333 mls/hr IV .Q6H NAHOMY; Protocol Levetiracetam (Keppra 500mg Ivpb) 500 mg in 100 mls @ 400 mls/hr IV Q12 NAHOMY Last Admin: 12/20/17 14:57 Dose: 400 mls/hr Nicardipine HCl (Cardene Iv Premix) 20 mg in 200 mls @ 50 mls/hr IV .Q4H PRN; Protocol PRN Reason: TITRATE PER MD ORDER Last Admin: 12/20/17 14:52 Dose: 5 mg/hr, 50 mls/hr Physical Exam - Constitutional Appears: Toxic - Head Exam Head Exam: ATRAUMATIC, NORMOCEPHALIC - Eye Exam Eye Exam: absent: EOMI, PERRL Pupil Exam: absent: PERRL - ENT Exam ENT Exam: Mucous Membranes Moist - Respiratory Exam Respiratory Exam: Clear to Auscultation Bilateral Additional comments: intubated, on PRVC - Cardiovascular Exam Cardiovascular Exam: RRR, +S1, +S2. absent: Systolic Murmur - Extremities Exam Extremities exam: Negative for: pedal edema Additional comments: b/l amputations, covered in dressing - Neurological Exam Neurological exam: Altered Additional comments: absent gag, corneals, gag reflexes - Skin Skin Exam: Pallor Results - Vital Signs Recent Vital Signs: Last Vital Signs Temp 95.4 F L 12/20/17 15:10 Pulse 84 12/20/17 15:10 Resp 17 12/20/17 13:03 BP 134/53 L 12/20/17 15:00 Pulse Ox 97 12/20/17 15:10 - Labs Result Diagrams: 12/20/17 11:25 12/20/17 11:25 Labs: Laboratory Results - last 24 hr 12/20/17 12/20/17 12/20/17 10:00 10:00 10:00 WBC 14.4 H RBC 3.73 Hgb 10.7 L Hct 34.7 L MCV 93.0 MCH 28.7 MCHC 30.8 L RDW 15.9 H Plt Count 315 MPV 10.1 Gran % 72.7 H Lymph % (Auto) 24.2 [place] % (Auto) 2.2 Eos % (Auto) 0.4 L Baso % (Auto) 0.5 Gran # 10.43 H Lymph # (Auto) 3.5 H [place] # (Auto) 0.3 Eos # (Auto) 0.1 Baso # (Auto) 0.07 PT 17.3 H INR 1.49 APTT 40.6 H pCO2 pO2 90 H HCO3 ABG pH ABG Total CO2 ABG O2 Saturation ABG O2 Content ABG Base Excess ABG Hemoglobin ABG Carboxyhemoglobin POC ABG HHb (Measured) ABG Methemoglobin ABG O2 Capacity VBG pH 6.82 L* VBG pCO2 73.0 H* VBG HCO3 11.9 L VBG Total CO2 14.1 L VBG O2 Sat (Calc) 86.0 H VBG Base Excess -23.2 L VBG Potassium 5.4 H Hgb O2 Saturation Sodium 144.0 Chloride 108.0 H Glucose 189 H Lactate 9.0 H* FiO2 21.0 Potassium Carbon Dioxide Anion Gap BUN Creatinine Est GFR ( Amer) Est GFR (Non-Af Amer) Random Glucose Calcium Magnesium Total Bilirubin AST ALT Alkaline Phosphatase Lactate Dehydrogenase Total Creatine Kinase Troponin I NT-Pro-B Natriuret Pep Total Protein Albumin Globulin Albumin/Globulin Ratio Venous Blood Potassium 5.4 H Blood Type Antibody Screen BBK History Checked 12/20/17 12/20/17 12/20/17 10:00 10:00 10:30 WBC RBC Hgb Hct MCV MCH MCHC RDW Plt Count MPV Gran % Lymph % (Auto) [place] % (Auto) Eos % (Auto) Baso % (Auto) Gran # Lymph # (Auto) [place] # (Auto) Eos # (Auto) Baso # (Auto) PT INR APTT pCO2 47 H pO2 86.0 HCO3 10.1 L ABG pH 6.94 L* ABG Total CO2 11.5 L ABG O2 Saturation 90.9 L ABG O2 Content 12.1 L ABG Base Excess -21.3 L ABG Hemoglobin 9.6 L ABG Carboxyhemoglobin 1.7 H POC ABG HHb (Measured) 8.9 H ABG Methemoglobin 0.5 ABG O2 Capacity 13.3 L VBG pH VBG pCO2 VBG HCO3 VBG Total CO2 VBG O2 Sat (Calc) VBG Base Excess VBG Potassium Hgb O2 Saturation 89.0 L Sodium 146 Chloride 110 H Glucose Lactate FiO2 100.0 Potassium 5.2 H Carbon Dioxide 11 L Anion Gap 30 H BUN 93 H Creatinine 11.6 H* Est GFR ( Amer) 6 Est GFR (Non-Af Amer) 5 Random Glucose 183 H Calcium 8.4 Magnesium 3.0 H Total Bilirubin 0.5 AST 62 H ALT 52 Alkaline Phosphatase 152 H Lactate Dehydrogenase 585 Total Creatine Kinase 82 Troponin I 0.10 NT-Pro-B Natriuret Pep 76898 H Total Protein 6.5 Albumin 3.2 Globulin 3.3 Albumin/Globulin Ratio 1.0 L Venous Blood Potassium Blood Type O POSITIVE Antibody Screen Negative BBK History Checked No verified bt 12/20/17 12/20/17 12/20/17 11:25 11:25 11:25 WBC 23.2 H D RBC 3.61 Hgb 10.2 L Hct 33.1 L MCV 91.7 MCH 28.3 MCHC 30.8 L RDW 15.9 H Plt Count 315 MPV 9.9 Gran % 87.2 H Lymph % (Auto) 9.1 L [place] % (Auto) 3.3 Eos % (Auto) 0.3 L Baso % (Auto) 0.1 Gran # 20.21 H Lymph # (Auto) 2.1 [place] # (Auto) 0.8 H Eos # (Auto) 0.1 Baso # (Auto) 0.03 PT INR APTT pCO2 pO2 224 H HCO3 ABG pH ABG Total CO2 ABG O2 Saturation ABG O2 Content ABG Base Excess ABG Hemoglobin ABG Carboxyhemoglobin POC ABG HHb (Measured) ABG Methemoglobin ABG O2 Capacity VBG pH 7.05 L* VBG pCO2 35.0 L VBG HCO3 9.7 L VBG Total CO2 10.8 L VBG O2 Sat (Calc) 98.3 H VBG Base Excess -19.9 L VBG Potassium 6.1 H Hgb O2 Saturation Sodium 142.0 146 Chloride 111.0 H 112 H Glucose 188 H Lactate 8.1 H* FiO2 21.0 Potassium 6.2 H* Carbon Dioxide 9 L Anion Gap 31 H BUN 93 H Creatinine 11.5 H* Est GFR ( Amer) 6 Est GFR (Non-Af Amer) 5 Random Glucose 180 H Calcium 8.1 L Magnesium Total Bilirubin 0.5 AST 82 H D ALT 60 H Alkaline Phosphatase 155 H Lactate Dehydrogenase Total Creatine Kinase Troponin I NT-Pro-B Natriuret Pep Total Protein 6.2 Albumin 3.1 Globulin 3.1 Albumin/Globulin Ratio 1.0 L Venous Blood Potassium 6.1 H Blood Type Antibody Screen BBK History Checked 12/20/17 14:50 WBC RBC Hgb Hct MCV MCH MCHC RDW Plt Count MPV Gran % Lymph % (Auto) [place] % (Auto) Eos % (Auto) Baso % (Auto) Gran # Lymph # (Auto) [place] # (Auto) Eos # (Auto) Baso # (Auto) PT INR APTT pCO2 pO2 133 H HCO3 ABG pH ABG Total CO2 ABG O2 Saturation ABG O2 Content ABG Base Excess ABG Hemoglobin ABG Carboxyhemoglobin POC ABG HHb (Measured) ABG Methemoglobin ABG O2 Capacity VBG pH 7.10 L* VBG pCO2 33.0 L VBG HCO3 10.2 L VBG Total CO2 11.2 L VBG O2 Sat (Calc) 97.8 H VBG Base Excess -18.4 L VBG Potassium 6.2 H* Hgb O2 Saturation Sodium 140.0 Chloride 106.0 Glucose 319 H Lactate 6.3 H* FiO2 21.0 Potassium Carbon Dioxide Anion Gap BUN Creatinine Est GFR ( Amer) Est GFR (Non-Af Amer) Random Glucose Calcium Magnesium Total Bilirubin AST ALT Alkaline Phosphatase Lactate Dehydrogenase Total Creatine Kinase Troponin I NT-Pro-B Natriuret Pep Total Protein Albumin Globulin Albumin/Globulin Ratio Venous Blood Potassium 6.2 H* Blood Type Antibody Screen BBK History Checked Assessment & Plan - Assessment and Plan (Free Text) Assessment: 47 year old bed bound male with PMH ESRD on HD MWF, DM type 2, HTN, 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 Head CT found hemorrhage in 4th ventricle. Neurology consulted for further management: - Head CT showed large amount of blood filling the 4th ventricle, small amount of blood in 3rd ventricle, focal area of hemorrhage in medial aspect of right thalamus. Moderate to severe hydrocephalus in medial aspect of right thalamus. - Since it is intraventricular bleed, would recommend EVD placement. Would recommend Neurosurgery consult. Discussed extensively with family, do not want to pursue surgery. - Would not benefit from 3% NS. - Keep HOB elevated, avoid high BP (gradually lower BP) - Avoid anticoagulants/antiplatelets. - Neuro checks - Monitor closely - Extremely poor prognosis - Family would like to go for terminal extubation once all family arrives. Case discussed with Dr Feng. <Carroll Feng - Last Filed: 12/21/17 11:27> Results - Vital Signs Recent Vital Signs: Last Vital Signs Temp 97.0 F L 12/20/17 16:15 Pulse 104 H 12/20/17 18:46 Resp 24 12/20/17 18:46 BP 149/74 12/20/17 16:15 Pulse Ox 98 12/20/17 16:15 - Labs Result Diagrams: 12/20/17 11:25 12/20/17 11:25 Labs: Laboratory Results - last 24 hr 12/20/17 12/20/17 12/20/17 11:25 11:25 11:25 WBC 23.2 H D RBC 3.61 Hgb 10.2 L Hct 33.1 L MCV 91.7 MCH 28.3 MCHC 30.8 L RDW 15.9 H Plt Count 315 MPV 9.9 Gran % 87.2 H Lymph % (Auto) 9.1 L [place] % (Auto) 3.3 Eos % (Auto) 0.3 L Baso % (Auto) 0.1 Gran # 20.21 H Lymph # (Auto) 2.1 [place] # (Auto) 0.8 H Eos # (Auto) 0.1 Baso # (Auto) 0.03 pO2 224 H VBG pH 7.05 L* VBG pCO2 35.0 L VBG HCO3 9.7 L VBG Total CO2 10.8 L VBG O2 Sat (Calc) 98.3 H VBG Base Excess -19.9 L VBG Potassium 6.1 H Sodium 142.0 Chloride 111.0 H Glucose 188 H Lactate 8.1 H* FiO2 21.0 Potassium Carbon Dioxide Anion Gap BUN Creatinine Est GFR ( Amer) Est GFR (Non-Af Amer) Random Glucose Calcium Total Bilirubin AST ALT Alkaline Phosphatase Total Protein Albumin Globulin Albumin/Globulin Ratio Procalcitonin 0.25 Venous Blood Potassium 6.1 H 12/20/17 12/20/17 11:25 14:50 WBC RBC Hgb Hct MCV MCH MCHC RDW Plt Count MPV Gran % Lymph % (Auto) [place] % (Auto) Eos % (Auto) Baso % (Auto) Gran # Lymph # (Auto) [place] # (Auto) Eos # (Auto) Baso # (Auto) pO2 133 H VBG pH 7.10 L* VBG pCO2 33.0 L VBG HCO3 10.2 L VBG Total CO2 11.2 L VBG O2 Sat (Calc) 97.8 H VBG Base Excess -18.4 L VBG Potassium 6.2 H* Sodium 146 140.0 Chloride 112 H 106.0 Glucose 319 H Lactate 6.3 H* FiO2 21.0 Potassium 6.2 H* Carbon Dioxide 9 L Anion Gap 31 H BUN 93 H Creatinine 11.5 H* Est GFR ( Amer) 6 Est GFR (Non-Af Amer) 5 Random Glucose 180 H Calcium 8.1 L Total Bilirubin 0.5 AST 82 H D ALT 60 H Alkaline Phosphatase 155 H Total Protein 6.2 Albumin 3.1 Globulin 3.1 Albumin/Globulin Ratio 1.0 L Procalcitonin Venous Blood Potassium 6.2 H* Attending/Attestation - Attestation I have personally seen and examined this patient.: Yes I have fully participated in the care of the patient.: Yes I have reviewed all pertinent clinical information: Yes Notes (Text): 12/21/17 11:26 I agree with the assessment and plan. The patient has a large IVH and is comatose, likely with extensive brainstem and cerebral injury. Will defer to n eurosurgery for further management, if it is considered possible. From a neurological perspective the patient has a poor prognosis. Conservative measures such as blood pressure control and head position should be considered.
--- NOTE | 2017-12-20 15:29 | CARD ---
APPROVED REPORT Date of service: 12/20/2017 EXAM: Two-dimensional and M-mode echocardiogram with Doppler and color Doppler. INDICATION CARDIAC ARREST WITH ROSC 2D DIMENSIONS IVSd1.1 (0.7-1.1cm)LVDd4.7 (3.9-5.9cm) PWd1.4 (0.7-1.1cm)LVDs3.5 (2.5-4.0cm) FS (%) 26.1 %LVEF (%)51.0 (>50%) M-Mode DIMENSIONS Aortic Root2.90 (2.2-3.7cm)Aortic Cusp Exc.1.60 (1.5-2.0cm) Aortic Valve AoV Peak Lyboghcd707.0cm/Diomedes Peak GR.13mmHg Mitral Valve MV E Cxxhueei568.0cm/sMV A Vleflapj75.6cm/sE/A ratio1.4 TDI Lateral E' Peak V11.30cm/sMedial E' Peak V6.92cm/sE/Lateral E'11.3 E/Medial E'18.5 Pulmonary Valve PV Peak Fgafdphn715.0cm/sPV Peak Grad.6mmHg Tricuspid Valve TR Peak [id number] [id number] Peak Gr.35mmHg [id number] LEFT VENTRICLE The left ventricle is normal size. There is borderline concentric left ventricular hypertrophy. Left ventricle systolic function is moderately impaired. There is normal LV segmental wall motion. The left ventricular diastolic function is normal. RIGHT VENTRICLE The right ventricle is normal size. There is normal right ventricular wall thickness. The right ventricular systolic function is normal. ATRIA The left atrium size is normal. The right atrium size is normal. AORTIC VALVE The aortic valve is mildly thickened. No aortic regurgitation is present. There is no aortic valvular stenosis. MITRAL VALVE The mitral valve is mildly thickened. Mitral regurgitation is trace. There is no mitral valve stenosis. TRICUSPID VALVE The tricuspid valve is normal in structure. There is mild tricuspid regurgitation. There is mild pulmonary hypertension. PULMONIC VALVE The pulmonary valve is normal in structure. There is no pulmonic valvular regurgitation. GREAT VESSELS The aortic root is normal in size. The IVC is normal in size and collapses >50% with inspiration. PERICARDIAL EFFUSION There is moderate left pleural effusion. There is a trace circumferential pericardial effusion. <Conclusion> The left ventricle is normal size. There is borderline concentric left ventricular hypertrophy. Left ventricle systolic function is moderately impaired. There is normal LV segmental wall motion. The left ventricular diastolic function is normal. There is mild tricuspid regurgitation. There is mild pulmonary hypertension.
[2017-12-20 16:21] VITALS: BP 149/74; TEMP 97; O2SAT 98
[2017-12-20 19:14] VITALS: PULSE 104; RESP 24
[2017-12-20] MEDS ORDERED: Pneumococcal 23-Valent Vaccine IM ONE (19:15)
[2017-12-20] MEDS ORDERED: Influenza Vaccine 60 mcg/0.5 mL SYR (4YR UP) IM ONE (19:15)
[2017-12-20] MEDS ORDERED: Morphine 2 mg/ml ISec IVP PRN (19:31)
[2017-12-20] MEDS ORDERED: Morphine 5 MG/ML SYRINGE IVP ONE (19:38)
[2017-12-20] MEDS ORDERED: Morphine 2 mg/ml ISec IVP ONE (20:00)
--- NOTE | 2017-12-20 20:46 | CP.PCM.DIS ---
<Jerica Lilly - Last Filed: 12/20/17 21:15> Provider - Provider Date of Admission: 12/20/17 10:30 Attending physician: Koby Angulo MD Primary care physician: Jordan Currie MD Consults: neurology ICU Time Spent in preparation of Discharge (in minutes): 45 Diagnosis - Discharge Diagnosis (1) Cardiac arrest Status: Acute Priority: High (2) Intracranial hemorrhage Status: Acute Priority: High (3) Sepsis Status: Acute Priority: Medium (4) ESRD (end stage renal disease) on dialysis Status: Chronic Priority: Medium Hospital Course - Lab Results Lab Results: Most Recent Lab Values WBC 23.2 10^3/ul (4.5-11.0) H D 12/20/17 11:25 RBC 3.61 10^6/uL (3.5-6.1) 12/20/17 11:25 Hgb 10.2 g/dL (14.0-18.0) L 12/20/17 11:25 Hct 33.1 % (42.0-52.0) L 12/20/17 11:25 MCV 91.7 fl (80.0-105.0) 12/20/17 11:25 MCH 28.3 pg (25.0-35.0) 12/20/17 11:25 MCHC 30.8 g/dl (31.0-37.0) L 12/20/17 11:25 RDW 15.9 % (11.5-14.5) H 12/20/17 11:25 Plt Count 315 10^3/uL (120.0-450.0) 12/20/17 11:25 MPV 9.9 fl (7.0-11.0) 12/20/17 11:25 Gran % 87.2 % (50.0-68.0) H 12/20/17 11:25 Lymph % (Auto) 9.1 % (22.0-35.0) L 12/20/17 11:25 [place] % (Auto) 3.3 % (1.0-6.0) 12/20/17 11:25 Eos % (Auto) 0.3 % (1.5-5.0) L 12/20/17 11:25 Baso % (Auto) 0.1 % (0.0-3.0) 12/20/17 11:25 Gran # 20.21 (1.4-6.5) H 12/20/17 11:25 Lymph # (Auto) 2.1 (1.2-3.4) 12/20/17 11:25 [place] # (Auto) 0.8 (0.1-0.6) H 12/20/17 11:25 Eos # (Auto) 0.1 (0.0-0.7) 12/20/17 11:25 Baso # (Auto) 0.03 K/mm3 (0.0-2.0) 12/20/17 11:25 PT 17.3 SECONDS (9.4-12.5) H 12/20/17 10:00 INR 1.49 12/20/17 10:00 APTT 40.6 Seconds (25.1-36.5) H 12/20/17 10:00 pCO2 47 mm/Hg (35-45) H 12/20/17 10:30 pO2 133 mm/Hg (30-55) H 12/20/17 14:50 HCO3 10.1 mmol/L (21-28) L 12/20/17 10:30 ABG pH 6.94 (7.35-7.45) L* 12/20/17 10:30 ABG Total CO2 11.5 mmol.L (22-28) L 12/20/17 10:30 ABG O2 Saturation 90.9 % (95-98) L 12/20/17 10:30 ABG O2 Content 12.1 ML/dl (15-23) L 12/20/17 10:30 ABG Base Excess -21.3 mmol/L (-2.0-3.0) L 12/20/17 10:30 ABG Hemoglobin 9.6 g/dL (11.7-17.4) L 12/20/17 10:30 ABG Carboxyhemoglobin 1.7 % (0.5-1.5) H 12/20/17 10:30 POC ABG HHb (Measured) 8.9 % (0-5) H 12/20/17 10:30 ABG Methemoglobin 0.5 % (0.0-3.0) 12/20/17 10:30 ABG O2 Capacity 13.3 mL/dl (16-24) L 12/20/17 10:30 VBG pH 7.10 (7.32-7.43) L* 12/20/17 14:50 VBG pCO2 33.0 (40-60) L 12/20/17 14:50 VBG HCO3 10.2 mmol/l (21-28) L 12/20/17 14:50 VBG Total CO2 11.2 mmol.L (22-28) L 12/20/17 14:50 VBG O2 Sat (Calc) 97.8 % (40-65) H 12/20/17 14:50 VBG Base Excess -18.4 mmol/L (0.0-2.0) L 12/20/17 14:50 VBG Potassium 6.2 mmol/L (3.6-5.2) H* 12/20/17 14:50 Hgb O2 Saturation 89.0 % (95.0-98.0) L 12/20/17 10:30 Sodium 140.0 mmol/L (132-148) 12/20/17 14:50 Chloride 106.0 mmol/L (98-107) 12/20/17 14:50 Glucose 319 mg/dl (75-110) H 12/20/17 14:50 Lactate 6.3 mmol/L (0.7-2.1) H* 12/20/17 14:50 FiO2 21.0 % 12/20/17 14:50 Sodium 146 mmol/L (132-148) 12/20/17 11:25 Potassium 6.2 mmol/L (3.6-5.0) H* 12/20/17 11:25 Chloride 112 mmol/L (98-107) H 12/20/17 11:25 Carbon Dioxide 9 mmol/L (21-33) L 12/20/17 11:25 Anion Gap 31 (10-20) H 12/20/17 11:25 BUN 93 mg/dL (7-21) H 12/20/17 11:25 Creatinine 11.5 mg/dl (0.8-1.5) H* 12/20/17 11:25 Est GFR ( Amer) 6 12/20/17 11:25 Est GFR (Non-Af Amer) 5 12/20/17 11:25 Random Glucose 180 mg/dL (70-110) H 12/20/17 11:25 Calcium 8.1 mg/dL (8.4-10.5) L 12/20/17 11:25 Magnesium 3.0 mg/dL (1.7-2.2) H 12/20/17 10:00 Total Bilirubin 0.5 mg/dL (0.2-1.3) 12/20/17 11:25 AST 82 U/L (17-59) H D 12/20/17 11:25 ALT 60 U/L (7-56) H 12/20/17 11:25 Alkaline Phosphatase 155 U/L (38-126) H 12/20/17 11:25 Lactate Dehydrogenase 585 U/L (333-699) 12/20/17 10:00 Total Creatine Kinase 82 U/L (35-230) 12/20/17 10:00 Troponin I 0.10 ng/mL 12/20/17 10:00 NT-Pro-B Natriuret Pep 38131 pg/mL (0-450) H 12/20/17 10:00 Total Protein 6.2 g/dL (5.8-8.3) 12/20/17 11:25 Albumin 3.1 g/dL (3.0-4.8) 12/20/17 11:25 Globulin 3.1 gm/dL 12/20/17 11:25 Albumin/Globulin Ratio 1.0 (1.1-1.8) L 12/20/17 11:25 Procalcitonin 0.25 NG/ML (0.19-0.49) 12/20/17 11:25 Venous Blood Potassium 6.2 mmol/L (3.6-5.2) H* 12/20/17 14:50 Blood Type O POSITIVE 12/20/17 10:00 Antibody Screen Negative 12/20/17 10:00 BBK History Checked No verified bt 12/20/17 10:00 - Hospital Course Hospital Course: Dave Donaldson is a 47 yo male with a history of ESRD (HD MWF), CVA, T2DM, [place], and HTN who presented to the ED after being found unresponsive for an unknown amount of time in his room by his mother and brother. They began CPR for 15 minutes until EMS arrived. EMS continued ACLS for another 20 minutes and intubated the patient. Patient's family reports that patient lives at home with family. He is bedbound and requires assistance with all ADLs. 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 Patient has been at his mental and physical baseline up until this event. However, patient missed dialysis on Saturday due to vomiting prior to transport. Patient's POA is his son, Nic. Patient does not have advance directives or living will. He never discussed code status with his family. Patient's family requested a palliative consult. [employer] hCanelle Guerrero, spoke with family, who decided to make the patient DNR. Code sepsis was called and ID was consulted for septic shock. Patient was managed in the ICU. He was on 2 pressors and intubated on a ventilator. Not responsive to any stimuli. Neurology was consulted. 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 Family decided not to pursue consult of neurosurgery. Cardiology was consulted and echo did not reveal any significant abnormalities. Family was informed of patients extremely poor prognosis. Family was gathered at bedside and decided to extubate the patient in the evening. Patient was pronounced at 8:36 PM on 12/20. Discharge Exam - Head Exam Head Exam: ATRAUMATIC, NORMOCEPHALIC - Eye Exam Pupil Exam: Fixed, Mydriatic - ENT Exam ENT Exam: Mucous Membranes Moist - Neck Exam Neck exam: Normal Inspection - Respiratory Exam Additional comments: absent breath sounds - Cardiovascular Exam Additional comments: absent heart sounds - GI/Abdominal Exam Additional comments: absent bowel sounds - Rectal Exam Rectal Exam: Deferred - Extremities Exam Additional comments: bandages on distal LEs 2/2 b/l foot amputations - Back Exam Back exam: NORMAL INSPECTION - Neurological Exam Additional comments: unresponsive absent reflexes - Skin Skin Exam: Dry, Intact, Normal Color, Warm Discharge Plan - Follow Up Plan Condition: Disposition: WITH WITHOUT AUTOPSY Referrals: Jordan Currie MD [Primary Care Provider] - <Koby Angulo - Last Filed: 12/21/17 16:20> Provider - Provider Date of Admission: 12/20/17 10:30 Attending physician: Koby Angulo MD Primary care physician: Jordan Currie MD Hospital Course - Lab Results Lab Results: Micro Results 12/20/17 11:25 Blood-Venous Blood Culture - Preliminary NO GROWTH AFTER 24 HOURS 12/20/17 10:00 Blood-Venous Blood Culture - Preliminary NO GROWTH AFTER 24 HOURS Most Recent Lab Values WBC 23.2 10^3/ul (4.5-11.0) H D 12/20/17 11:25 RBC 3.61 10^6/uL (3.5-6.1) 12/20/17 11:25 Hgb 10.2 g/dL (14.0-18.0) L 12/20/17 11:25 Hct 33.1 % (42.0-52.0) L 12/20/17 11:25 MCV 91.7 fl (80.0-105.0) 12/20/17 11:25 MCH 28.3 pg (25.0-35.0) 12/20/17 11:25 MCHC 30.8 g/dl (31.0-37.0) L 12/20/17 11:25 RDW 15.9 % (11.5-14.5) H 12/20/17 11:25 Plt Count 315 10^3/uL (120.0-450.0) 12/20/17 11:25 MPV 9.9 fl (7.0-11.0) 12/20/17 11:25 Gran % 87.2 % (50.0-68.0) H 12/20/17 11:25 Lymph % (Auto) 9.1 % (22.0-35.0) L 12/20/17 11:25 [place] % (Auto) 3.3 % (1.0-6.0) 12/20/17 11:25 Eos % (Auto) 0.3 % (1.5-5.0) L 12/20/17 11:25 Baso % (Auto) 0.1 % (0.0-3.0) 12/20/17 11:25 Gran # 20.21 (1.4-6.5) H 12/20/17 11:25 Lymph # (Auto) 2.1 (1.2-3.4) 12/20/17 11:25 [place] # (Auto) 0.8 (0.1-0.6) H 12/20/17 11:25 Eos # (Auto) 0.1 (0.0-0.7) 12/20/17 11:25 Baso # (Auto) 0.03 K/mm3 (0.0-2.0) 12/20/17 11:25 PT 17.3 SECONDS (9.4-12.5) H 12/20/17 10:00 INR 1.49 12/20/17 10:00 APTT 40.6 Seconds (25.1-36.5) H 12/20/17 10:00 pCO2 47 mm/Hg (35-45) H 12/20/17 10:30 pO2 133 mm/Hg (30-55) H 12/20/17 14:50 HCO3 10.1 mmol/L (21-28) L 12/20/17 10:30 ABG pH 6.94 (7.35-7.45) L* 12/20/17 10:30 ABG Total CO2 11.5 mmol.L (22-28) L 12/20/17 10:30 ABG O2 Saturation 90.9 % (95-98) L 12/20/17 10:30 ABG O2 Content 12.1 ML/dl (15-23) L 12/20/17 10:30 ABG Base Excess -21.3 mmol/L (-2.0-3.0) L 12/20/17 10:30 ABG Hemoglobin 9.6 g/dL (11.7-17.4) L 12/20/17 10:30 ABG Carboxyhemoglobin 1.7 % (0.5-1.5) H 12/20/17 10:30 POC ABG HHb (Measured) 8.9 % (0-5) H 12/20/17 10:30 ABG Methemoglobin 0.5 % (0.0-3.0) 12/20/17 10:30 ABG O2 Capacity 13.3 mL/dl (16-24) L 12/20/17 10:30 VBG pH 7.10 (7.32-7.43) L* 12/20/17 14:50 VBG pCO2 33.0 (40-60) L 12/20/17 14:50 VBG HCO3 10.2 mmol/l (21-28) L 12/20/17 14:50 VBG Total CO2 11.2 mmol.L (22-28) L 12/20/17 14:50 VBG O2 Sat (Calc) 97.8 % (40-65) H 12/20/17 14:50 VBG Base Excess -18.4 mmol/L (0.0-2.0) L 12/20/17 14:50 VBG Potassium 6.2 mmol/L (3.6-5.2) H* 12/20/17 14:50 Hgb O2 Saturation 89.0 % (95.0-98.0) L 12/20/17 10:30 Sodium 140.0 mmol/L (132-148) 12/20/17 14:50 Chloride 106.0 mmol/L (98-107) 12/20/17 14:50 Glucose 319 mg/dl (75-110) H 12/20/17 14:50 Lactate 6.3 mmol/L (0.7-2.1) H* 12/20/17 14:50 FiO2 21.0 % 12/20/17 14:50 Sodium 146 mmol/L (132-148) 12/20/17 11:25 Potassium 6.2 mmol/L (3.6-5.0) H* 12/20/17 11:25 Chloride 112 mmol/L (98-107) H 12/20/17 11:25 Carbon Dioxide 9 mmol/L (21-33) L 12/20/17 11:25 Anion Gap 31 (10-20) H 12/20/17 11:25 BUN 93 mg/dL (7-21) H 12/20/17 11:25 Creatinine 11.5 mg/dl (0.8-1.5) H* 12/20/17 11:25 Est GFR ( Amer) 6 12/20/17 11:25 Est GFR (Non-Af Amer) 5 12/20/17 11:25 Random Glucose 180 mg/dL (70-110) H 12/20/17 11:25 Calcium 8.1 mg/dL (8.4-10.5) L 12/20/17 11:25 Magnesium 3.0 mg/dL (1.7-2.2) H 12/20/17 10:00 Total Bilirubin 0.5 mg/dL (0.2-1.3) 12/20/17 11:25 AST 82 U/L (17-59) H D 12/20/17 11:25 ALT 60 U/L (7-56) H 12/20/17 11:25 Alkaline Phosphatase 155 U/L (38-126) H 12/20/17 11:25 Lactate Dehydrogenase 585 U/L (333-699) 12/20/17 10:00 Total Creatine Kinase 82 U/L (35-230) 12/20/17 10:00 Troponin I 0.10 ng/mL 12/20/17 10:00 NT-Pro-B Natriuret Pep 67207 pg/mL (0-450) H 12/20/17 10:00 Total Protein 6.2 g/dL (5.8-8.3) 12/20/17 11:25 Albumin 3.1 g/dL (3.0-4.8) 12/20/17 11:25 Globulin 3.1 gm/dL 12/20/17 11:25 Albumin/Globulin Ratio 1.0 (1.1-1.8) L 12/20/17 11:25 Procalcitonin 0.25 NG/ML (0.19-0.49) 12/20/17 11:25 Venous Blood Potassium 6.2 mmol/L (3.6-5.2) H* 12/20/17 14:50 Blood Type O POSITIVE 12/20/17 10:00 Antibody Screen Negative 12/20/17 10:00 BBK History Checked No verified bt 12/20/17 10:00 Attending/Attestation - Attestation I have personally seen and examined this patient.: Yes I have fully participated in the care of the patient.: Yes I have reviewed all pertinent clinical information, including history, physical exam and plan: Yes Notes (Text): attending note; Patient is a 47 year old male with a history of ESRD (HD MWF), CVA, T2DM, [place], and HTN, toe amputations on both feet is admitted after being found unresponsive for an unknown amount of time in his room by his mother and brother.They began CPR for 15 minutes until EMS arrived. EMS continued ACLS for another 20 minutes and intubated the patient. Patient's family reports that patient lives at home with family. He is bedbound and requires assistance with all ADLs. Patient is blind and has amputations in both feet. status post cardiac arrest. Currently patient is on vent and Nonresponsive. 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 Family decided not to pursue surgery. End-stage renal disease on dialysis; nephrology evaluation Appreciated. Patient's family has decided to withdraw care today. Family was informed of patients extremely poor prognosis. Family was gathered at bedside and decided to extubate the patient in the evening. Patient was pronounced at 8:36 PM on 12/20/17. gas examiner office called. Body released. certificate signed.
--- NOTE | 2017-12-20 22:11 | CON ---
DATE: 12/20/2017 HISTORY OF PRESENT ILLNESS: This is a 47-year-old gentleman with history of end-stage renal disease on hemodialysis, who was brought into emergency department by EMS after cardiac arrest (not witnessed). The patient lost his pulse before EMS arrival and family started to perform CPR. When EMS arrived, they diagnosed initially asystole and then V-tach rhythm. The patient was defibrillated and amiodarone was given. IV fluids were given as well. The patient also coded second time in emergency room. Of note, the patient had dialysis last time 4 days ago. No nausea, no vomiting, no diarrhea, no constipation. No chest pain. PAST MEDICAL HISTORY: Hypertension, diabetes, end-stage renal disease on dialysis. ALLERGIES: NKDA. FAMILY HISTORY: Noncontributory. SOCIAL HISTORY: No alcohol or illicit drug abuse. No tobacco smoking. REVIEW OF SYSTEMS: Review of 12-organ systems other than mentioned in history of present illness is negative. MEDICATION AT HOME: Unobtainable. PHYSICAL EXAMINATION: GENERAL: The patient is on norepinephrine 50 mcg per minute. Vasopressin 0.03 units per minute and stress-dose steroids are ordered and pending. Bicarb drip at 200 mL/hour also ordered and will be hanged soon. The patient is on PRVC. HEENT: Head and neck atraumatic. LUNGS: Clear to auscultation bilaterally. HEART: Regular rate and rhythm. S1, S2 distant. ABDOMEN: Soft, nontender, nondistended. MUSCULOSKELETAL: Trace bilateral pedal and ankle edema. NEURO: The patient is not spontaneously moving. SKIN: Moist. PSYCH: The patient is not responsive to touch and verbal stimuli. LABORATORY DATA: WBC 23.2, hemoglobin 10.2, platelet count 315. Sodium 146, potassium 6.2, BUN 93, creatinine 11.5, glucose 180, AST 82, ALT 60, total bilirubin 0.5. ProBNP 34,700. INR 1.49. Chest x-ray showed some bilateral vascular congestion, endotracheal tube was in satisfactory position. Left subclavian central line in the SVC without pneumothorax. Troponin is 0.1. EKG showed very questionable and less than [address] elevation in II, III and aVF. ASSESSMENT: This is a 47-year-old gentleman, who presented with cardiac arrest with initially shockable rhythm with underlying multiple cardiovascular comorbidities including end-stage renal disease, hypertension, diabetes. At present time, the patient requires hemodynamic support with high dose of norepinephrine and thus is not a candidate for therapeutic hypothermia. Cardiology, Nephrology and ID service is on board. CT of the head, chest, abdomen and pelvis are pending. Neuro: At present time, the patient is not a candidate for therapeutic hypothermia due to his significant hemodynamic instability. Continuous EEG monitoring and Keppra for seizure prophylaxis will be started. Neurology consult will be obtained as well. Pulmonary: We will continue with protective lung ventilation strategy including tidal volume of 4-8 mL per predicted body weight and maintaining plateau pressure less than 30 cm of water. Head of bed elevated more than 35 degrees. Oral hygiene. Daily sedation vacation and weaning trials when cardiogenic shock resolve and mental status improved. Cardiovascular: The patient is in shock, most likely differential diagnosis include distributive versus cardiogenic shock. The patient is on norepinephrine 15 mcg per minutes vasopressin 0.03 units per minute and stress-dose steroids. Stat echocardiogram was ordered and if indicated, ionotropic support will be initiated as well. Cardiology, Dr. Wilson is aware about the patient. The patient is not a candidate for PCI/cardiac angiography as per Cardiology service. Infectious Disease: The patient does have leukocytosis and possibility of distributive shock due to sepsis cannot be ruled out at present time. I agree with broad-spectrum antibiotics and septic workup including blood, urine, sputum culture and procalcitonin. Infectious Disease consult will be obtained. Endocrine: We will maintain blood glucose within 140-180 range according to night sugar trial. Renal: The patient has end-stage renal disease. Dr. Carmen will be asked to follow up on the patient in this regard as his primary ambulance driver paramedic does not have privileges here at [facility]. The patient was started on bicarb drip at 200 mL/hour. His ventilator setting was adjusted to increase his minute ventilation to avoid respiratory component of his acidosis as well. Palliative care services discussed Advance Directives with the patient's family and according to their wishes, the patient was made DNR. The patient will be going to ICU for now. Addendum: CTH-->large hemorrhagic stroke. Family asked for terminal extubation and comfort care, DNR ccm time 40 min Wander Litinski, MD [facility] # [id number] JACOB
--- NOTE | 2017-12-20 23:19 | CP.PCM.CON ---
History of Present Illness - History of Present Illness History of Present Illness: 47 yo M w/ pmh of htn, dm, s/p CVA, s/p CA, and ESRD on HD, presented to ED s/p cardiac arrest, nephrology being consulted for ESRD care; Patient seen early this evening; history taken primarily from records and sister who is at bedside as patient currently intubated and unresponsive; Suffered prolonged cardiac arrest on the field; subsequent head CT showed intraventricular hemorrhage; patient also noted to have agonal breathing; reportedly missed HD session on Saturday after having some vomiting; otherwise, baseline mental status was well but was completely dependent for ADL's due to being essentially bedbound and blind Discussed with patient's sister and son; in light of his already poor functional capacity, multiple hospitalizations for lower ext ulcerations/amputations and now with severe neurologic injury following cardiac arrest as well as intraventricular bleed, family opting for terminal extubation and to discontinue HD; Review of Systems - Review of Systems Systems not reviewed;Unavailable: Acuity of Condition, Altered Mental Status, Intubated Past Patient History - Infectious Disease Hx of Infectious Diseases: None - Tetanus Immunizations Tetanus Immunization: Unknown - Past Medical History & Family History Past Medical History?: Yes Past Family History: Reviewed and not pertinent - Past Social History Smoking Status: Never Smoked - CARDIAC Hx Cardiac Disorders: Yes (mi) Hx Hypertension: Yes Hx Peripheral Vascular Disease: Yes - PULMONARY Hx Respiratory Disorders: No - NEUROLOGICAL Hx Neurological Disorder: Yes HX Cerebrovascular Accident: Yes Other/Comment: b/l vision loss and left side weakness from cva - HEENT Hx HEENT Problems: Yes Hx Blind: Yes (both eyes) - RENAL Date of Last Dialysis Treatment: 12/16/17 - ENDOCRINE/METABOLIC Hx Endocrine Disorders: Yes Hx Diabetes Mellitus Type 1: Yes - HEMATOLOGICAL/ONCOLOGICAL Hx Blood Disorders: Yes Hx Anemia: Yes - INTEGUMENTARY Hx Dermatological Problems: Yes Other/Comment: ble skin discolored and dry, right great toe amputated, all toes amputated left foot, hx of gangrene left great toe - MUSCULOSKELETAL/RHEUMATOLOGICAL Hx Falls: No - GENITOURINARY/GYNECOLOGICAL Hx Genitourinary Disorders: Yes (anuria) - PSYCHIATRIC Hx Substance Use: No - SURGICAL HISTORY Hx Surgeries: Yes Other/Comment: left sc tcl today, rcw hd cath, amputation right great toe, amputation all toes left foot - ANESTHESIA Hx Anesthesia: Yes Hx Anesthesia Reactions: No Hx Malignant Hyperthermia: No Meds Allergies/Adverse Reactions: Allergies Allergy/AdvReac Type Severity Reaction Status Date / Time No Known Allergies Allergy Verified 12/20/17 09:57 - Medications Medications: Current Medications Hydrocortisone Sodium Succinate (Solu-Cortef) 50 mg IVP Q6H NAHOMY Last Admin: 12/20/17 14:53 Dose: 50 mg NOREPINEPHRINE BIT/0.9 % NACL (Levophed 4 Mg/ 250 Ml Ns Premixed) 4 mg in 250 mls @ 15 mls/hr IV .[id number] PRN; Protocol PRN Reason: TITRATE PER MD ORDER Last Admin: 12/20/17 13:00 Dose: 9.86 mcg/min, 37 mls/hr Sodium Bicarbonate 150 meq/ (Dextrose) 1,150 mls @ 200 mls/hr IV .Q5H45M NAHOMY Last Admin: 12/20/17 12:57 Dose: 200 mls/hr Vasopressin 20 units/ Dextrose 101 mls @ 9.09 mls/hr IV .Q11H7M NAHOMY; Protocol Amiodarone HCl/Dextrose (Nexterone 360 Mg In D5w 200 Ml (Premix)) 360 mg in 200 mls @ 33.333 mls/hr IV .Q6H NAHOMY; Protocol Levetiracetam (Keppra 500mg Ivpb) 500 mg in 100 mls @ 400 mls/hr IV Q12 NAHOMY Last Admin: 12/20/17 14:57 Dose: 400 mls/hr Nicardipine HCl (Cardene Iv Premix) 20 mg in 200 mls @ 50 mls/hr IV .Q4H PRN; Protocol PRN Reason: TITRATE PER MD ORDER Last Admin: 12/20/17 14:52 Dose: 5 mg/hr, 50 mls/hr Meropenem 250 mg/ Sodium (Chloride) 100 mls @ 100 mls/hr IVPB Q12H NAHOMY; Protocol Stop: 12/27/17 20:46 Doxycycline Hyclate 100 mg/ (Sodium Chloride) 100 mls @ 100 mls/hr IVPB Q12 NAHOMY; Protocol Lorazepam (Ativan) 1 mg IVP Q1H PRN; Protocol PRN Reason: Agitation Last Admin: 12/20/17 20:19 Dose: 1 mg Morphine Sulfate (Morphine) 2 mg IVP Q2H PRN PRN Reason: resp distress terminal extubat Last Admin: 12/20/17 20:19 Dose: 2 mg Physical Exam - Additional Findings Additional findings: Intubated; agonal breathing; Results - Vital Signs Recent Vital Signs: Last Vital Signs Temp 97.0 F L 12/20/17 16:15 Pulse 104 H 12/20/17 18:46 Resp 24 12/20/17 18:46 BP 149/74 12/20/17 16:15 Pulse Ox 98 12/20/17 16:15 - Labs Result Diagrams: 12/20/17 11:25 12/20/17 11:25 Labs: Laboratory Results - last 24 hr 12/20/17 12/20/17 12/20/17 10:00 10:00 10:00 WBC 14.4 H RBC 3.73 Hgb 10.7 L Hct 34.7 L MCV 93.0 MCH 28.7 MCHC 30.8 L RDW 15.9 H Plt Count 315 MPV 10.1 Gran % 72.7 H Lymph % (Auto) 24.2 Sharp % (Auto) 2.2 Eos % (Auto) 0.4 L Baso % (Auto) 0.5 Gran # 10.43 H Lymph # (Auto) 3.5 H Sharp # (Auto) 0.3 Eos # (Auto) 0.1 Baso # (Auto) 0.07 PT 17.3 H INR 1.49 APTT 40.6 H pCO2 pO2 90 H HCO3 ABG pH ABG Total CO2 ABG O2 Saturation ABG O2 Content ABG Base Excess ABG Hemoglobin ABG Carboxyhemoglobin POC ABG HHb (Measured) ABG Methemoglobin ABG O2 Capacity VBG pH 6.82 L* VBG pCO2 73.0 H* VBG HCO3 11.9 L VBG Total CO2 14.1 L VBG O2 Sat (Calc) 86.0 H VBG Base Excess -23.2 L VBG Potassium 5.4 H Hgb O2 Saturation Sodium 144.0 Chloride 108.0 H Glucose 189 H Lactate 9.0 H* FiO2 21.0 Potassium Carbon Dioxide Anion Gap BUN Creatinine Est GFR ( Amer) Est GFR (Non-Af Amer) Random Glucose Calcium Magnesium Total Bilirubin AST ALT Alkaline Phosphatase Lactate Dehydrogenase Total Creatine Kinase Troponin I NT-Pro-B Natriuret Pep Total Protein Albumin Globulin Albumin/Globulin Ratio Procalcitonin Venous Blood Potassium 5.4 H Blood Type Antibody Screen BBK History Checked 12/20/17 12/20/17 12/20/17 10:00 10:00 10:30 WBC RBC Hgb Hct MCV MCH MCHC RDW Plt Count MPV Gran % Lymph % (Auto) Sharp % (Auto) Eos % (Auto) Baso % (Auto) Gran # Lymph # (Auto) Sharp # (Auto) Eos # (Auto) Baso # (Auto) PT INR APTT pCO2 47 H pO2 86.0 HCO3 10.1 L ABG pH 6.94 L* ABG Total CO2 11.5 L ABG O2 Saturation 90.9 L ABG O2 Content 12.1 L ABG Base Excess -21.3 L ABG Hemoglobin 9.6 L ABG Carboxyhemoglobin 1.7 H POC ABG HHb (Measured) 8.9 H ABG Methemoglobin 0.5 ABG O2 Capacity 13.3 L VBG pH VBG pCO2 VBG HCO3 VBG Total CO2 VBG O2 Sat (Calc) VBG Base Excess VBG Potassium Hgb O2 Saturation 89.0 L Sodium 146 Chloride 110 H Glucose Lactate FiO2 100.0 Potassium 5.2 H Carbon Dioxide 11 L Anion Gap 30 H BUN 93 H Creatinine 11.6 H* Est GFR ( Amer) 6 Est GFR (Non-Af Amer) 5 Random Glucose 183 H Calcium 8.4 Magnesium 3.0 H Total Bilirubin 0.5 AST 62 H ALT 52 Alkaline Phosphatase 152 H Lactate Dehydrogenase 585 Total Creatine Kinase 82 Troponin I 0.10 NT-Pro-B Natriuret Pep 54469 H Total Protein 6.5 Albumin 3.2 Globulin 3.3 Albumin/Globulin Ratio 1.0 L Procalcitonin Venous Blood Potassium Blood Type O POSITIVE Antibody Screen Negative BBK History Checked No verified bt 12/20/17 12/20/17 12/20/17 11:25 11:25 11:25 WBC 23.2 H D RBC 3.61 Hgb 10.2 L Hct 33.1 L MCV 91.7 MCH 28.3 MCHC 30.8 L RDW 15.9 H Plt Count 315 MPV 9.9 Gran % 87.2 H Lymph % (Auto) 9.1 L Sharp % (Auto) 3.3 Eos % (Auto) 0.3 L Baso % (Auto) 0.1 Gran # 20.21 H Lymph # (Auto) 2.1 Sharp # (Auto) 0.8 H Eos # (Auto) 0.1 Baso # (Auto) 0.03 PT INR APTT pCO2 pO2 224 H HCO3 ABG pH ABG Total CO2 ABG O2 Saturation ABG O2 Content ABG Base Excess ABG Hemoglobin ABG Carboxyhemoglobin POC ABG HHb (Measured) ABG Methemoglobin ABG O2 Capacity VBG pH 7.05 L* VBG pCO2 35.0 L VBG HCO3 9.7 L VBG Total CO2 10.8 L VBG O2 Sat (Calc) 98.3 H VBG Base Excess -19.9 L VBG Potassium 6.1 H Hgb O2 Saturation Sodium 142.0 Chloride 111.0 H Glucose 188 H Lactate 8.1 H* FiO2 21.0 Potassium Carbon Dioxide Anion Gap BUN Creatinine Est GFR ( Amer) Est GFR (Non-Af Amer) Random Glucose Calcium Magnesium Total Bilirubin AST ALT Alkaline Phosphatase Lactate Dehydrogenase Total Creatine Kinase Troponin I NT-Pro-B Natriuret Pep Total Protein Albumin Globulin Albumin/Globulin Ratio Procalcitonin 0.25 Venous Blood Potassium 6.1 H Blood Type Antibody Screen BBK History Checked 12/20/17 12/20/17 11:25 14:50 WBC RBC Hgb Hct MCV MCH MCHC RDW Plt Count MPV Gran % Lymph % (Auto) Sharp % (Auto) Eos % (Auto) Baso % (Auto) Gran # Lymph # (Auto) Sharp # (Auto) Eos # (Auto) Baso # (Auto) PT INR APTT pCO2 pO2 133 H HCO3 ABG pH ABG Total CO2 ABG O2 Saturation ABG O2 Content ABG Base Excess ABG Hemoglobin ABG Carboxyhemoglobin POC ABG HHb (Measured) ABG Methemoglobin ABG O2 Capacity VBG pH 7.10 L* VBG pCO2 33.0 L VBG HCO3 10.2 L VBG Total CO2 11.2 L VBG O2 Sat (Calc) 97.8 H VBG Base Excess -18.4 L VBG Potassium 6.2 H* Hgb O2 Saturation Sodium 146 140.0 Chloride 112 H 106.0 Glucose 319 H Lactate 6.3 H* FiO2 21.0 Potassium 6.2 H* Carbon Dioxide 9 L Anion Gap 31 H BUN 93 H Creatinine 11.5 H* Est GFR ( Amer) 6 Est GFR (Non-Af Amer) 5 Random Glucose 180 H Calcium 8.1 L Magnesium Total Bilirubin 0.5 AST 82 H D ALT 60 H Alkaline Phosphatase 155 H Lactate Dehydrogenase Total Creatine Kinase Troponin I NT-Pro-B Natriuret Pep Total Protein 6.2 Albumin 3.1 Globulin 3.1 Albumin/Globulin Ratio 1.0 L Procalcitonin Venous Blood Potassium 6.2 H* Blood Type Antibody Screen BBK History Checked - Imaging and Cardiology Chest x-ray Status: Image reviewed by me Additional comment: pulmonary edema; Assessment & Plan (1) ESRD (end stage renal disease) on dialysis Assessment and Plan: Reportedly missed last HD session; has evidence of volume overload on CXR; with modest hyperkalemia and profound high anion gap metaboilc acidosis; given patient's overall very poor prognosis, holding further HD is reasonable; also, HD can raise intracranial pressure and precipitate herniation; -agree with bicarb drip for severe metabolic acidosis; Status: Chronic Priority: Medium (2) Cardiac arrest Status: Acute Priority: High (3) Intracranial hemorrhage Status: Acute Priority: High
--- NOTE | 2017-12-21 00:28 | CP.PCM.PRO ---
Pronouncement of Note - Clinical Findings Physical Exam: No Response Verbal/Painful Stimuli, Absent Peripheral Puls es{Carotid & Femoral}, Absent Heart & Breath Sounds, No Pupillary Light Reflex, No Corneal Reflex, Pupils Fixed & Dilated, Absence of Vital Signs - Pronouncement Time Time of Pronouncement of : 20:36 - Notifications Pronouncement Notifications: Family Notified, Atending Notified Clinical Trials Systems Administrator Notified: Yes - [place] [id number]
--- NOTE | 2017-12-21 04:14 | CON ---
DATE: <12/20/2017> SERVICE: CARDIOLOGY REASON FOR CONSULTATION: Evaluation for code STEMI, gentleman who had been found to be unresponsive for unknown amount of time in his room. BRIEF CLINICAL HISTORY: This is a 47-year-old male, information obtained from the son who is at the bedside, end-stage renal dialysis of more than 2 years on Saturday, Saturday, and Saturday, type 2 diabetes, hypertension, CVA, severe peripheral arterial disease status post left forefoot amputation and right big toe amputation who was found to be unresponsive by his mother, not sure reportedly 15-20 minutes the EMT guard and ACLS protocol brought here and then on the way to the hospital, the patient has another 20 minutes, CPR was done and then later in [place], return of circulation came back. At that point, I was contacted for evaluation for code STEMI. The patient had no gag reflex, very minimal pupillary reflex present. I did the suction and observed with nurse who was doing suction. PAST MEDICAL HISTORY: Past history as per the son, end-stage renal disease Saturday, Saturday, and Saturday, diabetes, hypertension, hyperlipidemia. SOCIAL HISTORY: Denies smoking. Denies any history of alcohol abuse. CURRENT MEDICATIONS: The patient was taking aspirin and Plavix as son knows further, no information obtained. PAST SURGICAL HISTORY: Significant for left forefoot amputation, tarsal and metatarsal joint and right big toe amputation. REVIEW OF SYSTEMS: As per HPI. PHYSICAL EXAMINATION VITAL SIGNS: Temperature afebrile, heart rate 90, blood pressure 130/80. HEENT: PERRLA. Extraocular muscles intact. NECK: Supple. No carotid bruits or thyromegaly. CHEST: Clear to auscultation. HEART: S1 and S2 regular. ABDOMEN: Soft. EXTREMITIES: Clubbing and cyanosis negative. LABORATORY DATA: Blood workup as follows; WBC 23.2, hemoglobin 10.2, hematocrit 33.1, platelet count 315. Chemistry shows sodium 146, potassium 5.2, chloride of 110, carbon dioxide 11, of 30, creatinine 11.6, BUN 93. EKG showed normal sinus ST elevation inferior lead with possible lateral extension. 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 Further recommendation depending on the hospital course. If the patient is salvageable, we will consider produce laborer for now or it will be postponed and code ST elevation myocardial infarction was postponed, discussed with Dr. Fredy Moss, ENT physician, discussed at length and now we will just continue heparin but before start heparin, I will give 3000 heparin bolus 1000 units an hour, but before we start heparin we will get a CAT scan to rule out intracerebral bleed. Thank you Dr. Moss for providing us the opportunity in taking care of the patient, Anika Dave. Theodore Wilson MD
--- NOTE | 2017-12-24 03:10 | OP ---
PROCEDURE DATE: 12/20/2017 PROCEDURE: Left subclavian central venous catheter placement. INDICATION: Hemodynamic support with vasopressors. DESCRIPTION OF PROCEDURE: After obtaining informed consent, operational area was sterilized. Maximum barrier precautions used. Left subclavian vein was cannulated under real-time ultrasound guidance by sterile Seldinger technique. Guidewire removed. Hemostasis achieved. Sterile dressing applied. EBL is minimal. Chest x-ray showed correct position of the left subclavian CVC, and no pneumothorax. Wander Escobedo MD
== END 2017-12-20 20:36 | DRG 64 ==
LOC: ED 09:45 → ERH 10:30 → ICU 13:15
PROVIDERS: ADMIT Internal Medicine; ATTEND Internal Medicine
PROC: 5A1935Z Respiratory Ventilation, Less than 24 Consecutive Hours (ICD-10-PCS; principal; 2017-12-20)
PROC: 0BH17EZ Insertion of Endotracheal Airway into Trachea, Via Natural or Artificial Opening (ICD-10-PCS; 2017-12-20)
DX: I61.5 Nontraumatic intracerebral hemorrhage, intraventricular (principal); A41.9 Sepsis, unspecified organism; N18.6 End stage renal disease; I21.3 ST elevation (STEMI) myocardial infarction of unspecified site; G91.9 Hydrocephalus, unspecified; I12.0 Hypertensive chronic kidney disease with stage 5 chronic kidney disease or end stage renal disease; I47.2 Ventricular tachycardia; E87.2 Acidosis; R57.0 Cardiogenic shock; E87.5 Hyperkalemia; E11.22 Type 2 diabetes mellitus with diabetic chronic kidney disease; E11.51 Type 2 diabetes mellitus with diabetic peripheral angiopathy without gangrene; E78.5 Hyperlipidemia, unspecified; H54.3 Unqualified visual loss, both eyes; Z66 Do not resuscitate; R40.20 Unspecified coma; Z99.2 Dependence on renal dialysis; Z79.4 Long term (current) use of insulin; Z74.01 Bed confinement status; Z86.73 Personal history of transient ischemic attack (TIA), and cerebral infarction without residual deficits; Z89.432 Acquired absence of left foot; Z89.431 Acquired absence of right foot